=== PATIENT | female | born 2000 | race Caucasian/White ===

== ENCOUNTER 2018-02-07 23:54 | Emergency (ER) | payer MEDICAID, SELFPAY ==
[2018-02-07 23:56] VITALS: BP 137/81; PULSE 106; RESP 20; TEMP 36.2; O2SAT 98; BMI 36.6
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
[2018-02-08 00:12] VITALS: BP 125/80; PULSE 95; RESP 14; O2SAT 98
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
== END 2018-02-08 00:33 | disposition home or self-care (01) ==
PROVIDERS: Emergency Provider Emergency Medicine; Family Provider Family Medicine; PCP Family Medicine
DX: S40.022A Contusion of left upper arm, initial encounter (principal); S20.212A Contusion of left front wall of thorax, initial encounter; S39.012A Strain of muscle, fascia and tendon of lower back, initial encounter; V43.52XA Car driver injured in collision with other type car in traffic accident, initial encounter; W22.11XA Striking against or struck by driver side automobile airbag, initial encounter; Y93.89 Activity, other specified; Y92.410 Unspecified street and highway as the place of occurrence of the external cause; Z72.0 Tobacco use
CPT/HCPCS: 99282

== ENCOUNTER → 2018-02-11 11:42 | Outpatient (CLI) | payer MEDICAID, SELFPAY ==
[2018-02-07 23:56] VITALS: BMI 36.6
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
== END ==
PROVIDERS: Family Provider Family Medicine; PCP Family Medicine; Referring Provider Family Medicine; Visit Provider Family Medicine
DX: M54.2 Cervicalgia (principal); M54.5 Low back pain
CPT/HCPCS: 72050; 72100

== ENCOUNTER → 2018-03-31 10:14 | Outpatient (CLI) | payer OTHER, MEDICAID, SELFPAY ==
[2018-03-31 10:03] VITALS: BMI 36.6
[2018-03-31 10:42] LABS: Absolute Lymphocyte Count 3.49 X10^3/ul (0.83-4.51); Absolute Neutrophil Count 9.6 X10^3/uL (2.0-7.7); Basophil# 0.02 X10^3/uL; Basophil% 0.1 % (0-1); Eosinophil# 0.19 X10^3/uL; Eosinophils% 1.3 % (0-5); Hematocrit 39.1 % (37-47); Hemoglobin 13.1 g/dl (12.0-15.0); Lymphocyte # 3.49 X10^3/ul (4.0); Lymphocyte % 24.2 % (19-41); Mean Corp Hgb Conc 33.5 g/gl (32-36); Mean Corpuscular Hgb 30.3 pg (27.0-32.0); Mean Corpuscular Volume 90.3 fL (81-99); Mean Platelet Vol. 9.1 fl (6.2-12.0); Monocyte# 1.04 X10^3/uL; Monocyte% 7.2 % (0-10); Neutrophil # 9.64 X10^3/uL (2.7-7.7); Neutrophil % 66.8 % (47-70); Platelet Count 256 K/mm3 (150-450); RBC Distribution Width CV 12.5 % (11.6-14.6); RBC Distribution Width SD 41.2 fl (35.1-43.9); Red Blood Count 4.33 M/mm3 (4.2-5.4); White Blood Count 14.4 K/mm3 (4.4-11.0)
[2018-03-31 10:44] LABS: POSITIVE COUNT NO; POSITIVE DIFFERENTIAL NO; POSITIVE MORPHOLOGY NO
[2018-03-31 12:00] LABS: HIV - WCH Non-Reactive (Nonreactive); Rubella IgG 75.2 IU/mL
[2018-03-31 14:49] LABS: Chlamydia Trachomatis by PCR Negative (Negative); Neisserai gonorrhoeae by PCR Negative (Negative); Probe Check PASS; Sample Adequacy Control PASS; Specimen Processing Control PASS
[2018-04-01 08:34] LABS: HEPATITIS B SURFACE AG Negative (Negative)
[2018-04-04 03:30] LABS: Rapid Plasmin Reagin (RPR) NONREACTIVE (NONREACTIVE)
== END ==
PROVIDERS: Nurse Practitioner Women's Health; Family Provider Family Medicine; PCP Family Medicine; Referring Provider Obstetrics & Gynecology; Visit Provider Obstetrics & Gynecology
DX: Z34.90 Encounter for supervision of normal pregnancy, unspecified, unspecified trimester (principal)
CPT/HCPCS: 36415; 85025; 86592; 86703; 86762; 86850; 86900; 87077; 87086; 87088; 87186; 87340; 87491; 87591

== ENCOUNTER → 2018-04-21 12:22 | Outpatient (CLI) | payer OTHER, SELFPAY ==
[2018-03-31 10:03] VITALS: BMI 36.6
== END ==
PROVIDERS: Family Provider Family Medicine; PCP Family Medicine
DX: Z36.82 Encounter for antenatal screening for nuchal translucency (principal); Z36.0 Encounter for antenatal screening for chromosomal anomalies
CPT/HCPCS: 36415

== ENCOUNTER → 2018-05-26 09:54 | Outpatient (CLI) | payer MEDICAID, SELFPAY ==
[2018-05-26 09:18] VITALS: BMI 36.6
== END ==
PROVIDERS: Family Provider Family Medicine; PCP Family Medicine
DX: Z34.82 Encounter for supervision of other normal pregnancy, second trimester (principal)
CPT/HCPCS: 36415

== ENCOUNTER 2018-06-08 05:30 | Emergency (ER) | payer MEDICAID, SELFPAY ==
[2018-05-26 09:18] VITALS: BMI 36.6
[2018-06-08 05:32] VITALS: BP 133/70; PULSE 109; RESP 20; TEMP 37.2; O2SAT 96; BMI 37.5
--- NOTE | 2018-06-08 05:43 | ED.VISSUMM ---
- ER Visit Summary Date of Service: 06/08/18 Chief Complaint: Nausea, vomiting and diarrhea History of Present Illness: The patient is a 18 F currently 19 weeks . Ab0. Due October 31. Currently under the care of Dr. Kelsey Meeks. Patient states last night about 10 PM she started having nausea, vomiting diarrhea. No fever. No dysuria. No abdominal pain. No vaginal bleeding. Been able to hold down limited fluids. Physical Examination: Young female no acute distress. Vital signs are stable. She is afebrile. Temperature 99. HEENT exam dry mixed memories. Neck nontender no lymphadenopathy. Lungs clear to auscultation bilaterally. Heart regular rhythm rate about 110 no murmur. Abdomen soft. Gravid uterus. Nontender. Normal bowel sounds no peritoneal signs. Both the right upper right lower quadrants are unremarkable. No peritoneal signs. No McBurney's point tenderness. Extremities moves all 4. Calves nontender. No edema. Neurologically awake and alert with no focal motor deficits. Skin unremarkable. Back nontender. Test Results: None Emergency Department Course and Treatment: Patient treated with IV fluids and IV Zofran. P.o. fluid challenge. Repeat exam she is doing well and is been able to hold down fluids. Discharged to home with Zofran home pack. Treatment Plan: Plenty of fluids and rest. Increase diet slowly. Return if worse. Follow-up with your [employer]. Disposition: Discharge Impression: Acute viral gastroenteritis with nausea, vomiting diarrhea Second trimester This note was generated with [employer] dictation software. It may contain incorrect words, spelling, and punctuation that were not noted in review of the chart prior to signing ED Disposition - Plan for ED Patient: Referrals: Jabari Rubin MD [Primary Care Provider] -
--- NOTE | 2018-06-08 05:45 | ED.DEP ---
ED Disposition - Plan for ED Patient: Disposition: Home or Assisted Living Instructions: ED Gastroenteritis Viral Prescriptions: Ondansetron [Zofran Odt] 4 mg PO Q8H PRN PRN #10 tab PRN Reason: Nausea Referrals: Jabari Rubin MD [Primary Care Provider] - 1-2 Days if not improving Additional Instructions: Plenty of fluids and rest. Increase diet slowly as tolerated. Return if unable to keep fluids down or feeling worse. Zofran as needed for nausea.
[2018-06-08] MEDS: Ondansetron 4 MG/2 ML Vial IV (05:50)
[2018-06-08] MEDS: 0.9% Normal Saline 1,000 ML 999 ML IV (05:50)
[2018-06-08 06:57] VITALS: BP 120/80; PULSE 84; RESP 18; O2SAT 98
== END 2018-06-08 06:58 | disposition home or self-care (01) ==
PROVIDERS: Emergency Provider Emergency Medicine; Family Provider Family Medicine; PCP Family Medicine
DX: O99.612 Diseases of the digestive system complicating pregnancy, second trimester (principal); A08.4 Viral intestinal infection, unspecified; K21.9 Gastro-esophageal reflux disease without esophagitis; Z3A.19 19 weeks gestation of pregnancy
CPT/HCPCS: 96361; 96374; 99284; J7030; A4216; J2405

== ENCOUNTER → 2018-06-23 16:20 | Outpatient (CLI) | payer MEDICAID, SELFPAY ==
[2018-06-23 11:08] VITALS: BMI 37.5
== END ==
PROVIDERS: Family Provider Family Medicine; PCP Family Medicine; Referring Provider Obstetrics & Gynecology; Visit Provider Obstetrics & Gynecology
DX: O23.42 Unspecified infection of urinary tract in pregnancy, second trimester (principal); Z3A.00 Weeks of gestation of pregnancy not specified
CPT/HCPCS: 87077; 87086; 87088; 87186

== ENCOUNTER → 2018-07-15 18:07 | Outpatient (CLI) | payer MEDICAID, SELFPAY ==
[2018-07-15 16:49] VITALS: BMI 38.7
== END ==
PROVIDERS: Family Provider Family Medicine; PCP Family Medicine; Referring Provider Obstetrics & Gynecology; Visit Provider Obstetrics & Gynecology
DX: O23.40 Unspecified infection of urinary tract in pregnancy, unspecified trimester (principal); Z3A.00 Weeks of gestation of pregnancy not specified
CPT/HCPCS: 87086; 87088

== ENCOUNTER → 2018-07-30 10:29 | Outpatient (CLI) | payer MEDICAID, SELFPAY ==
[2018-07-30 10:24] VITALS: BMI 37.5
[2018-07-30 11:34] LABS: Absolute Lymphocyte Count 3.95 X10^3/ul (0.83-4.51); Absolute Neutrophil Count 15.7 X10^3/uL (2.0-7.7); Basophil# 0.03 X10^3/uL; Basophil% 0.1 % (0-1); Differential Indicated SCAN CRITERIA MET; Eosinophil# 0.28 X10^3/uL; Eosinophils% 1.3 % (0-5); Hematocrit 34.8 % (37-47); Hemoglobin 11.9 g/dl (12.0-15.0); Lymphocyte # 3.95 X10^3/ul (4.0); Lymphocyte % 18.8 % (19-41); Mean Corp Hgb Conc 34.2 g/gl (32-36); Mean Corpuscular Hgb 31.2 pg (27.0-32.0); Mean Corpuscular Volume 91.3 fL (81-99); Mean Platelet Vol. 9.4 fl (6.2-12.0); Monocyte% 4.3 % (0-10); Neutrophil # 15.66 X10^3/uL (2.7-7.7); Neutrophil % 74.5 % (47-70); POSITIVE COUNT NO; POSITIVE DIFFERENTIAL NO; POSITIVE MORPHOLOGY YES; Platelet Count 288 K/mm3 (150-450); RBC Distribution Width CV 12.8 % (11.6-14.6); RBC Distribution Width SD 42.4 fl (35.1-43.9); Red Blood Count 3.81 M/mm3 (4.2-5.4)
[2018-07-30 11:35] LABS: Glucose Challenge Gest 1H 50g 148 mg/dL (70-140)
== END ==
PROVIDERS: Family Provider Family Medicine; PCP Family Medicine; Visit Provider Obstetrics & Gynecology
DX: Z34.80 Encounter for supervision of other normal pregnancy, unspecified trimester (principal)
CPT/HCPCS: 36415; 82950; 85025

== ENCOUNTER 2018-07-31 21:46 | Outpatient (CLI) | payer MEDICAID, SELFPAY ==
[2018-07-30 10:24] VITALS: BMI 37.5
--- NOTE | 2018-08-02 09:59 | OB.TRI.PN ---
Progress Notes Date of Service: 07/31/18 Progress Note: Patient presents for chest pain and acute shortness of breath heart tones 140s patient sent to ER for evaluation. Diagnosed with pneumonia please see ED dictation for additional information
== END 2018-07-31 22:20 | disposition home or self-care (01) ==
LOC: WPOUT 22:19 → WP 22:20
PROVIDERS: Family Provider Family Medicine; PCP Family Medicine; Referring Provider Obstetrics & Gynecology; Visit Provider Obstetrics & Gynecology
DX: O99.512 Diseases of the respiratory system complicating pregnancy, second trimester (principal); J18.9 Pneumonia, unspecified organism; Z3A.26 26 weeks gestation of pregnancy
CPT/HCPCS: 59050; 99218; G0378

== ENCOUNTER 2018-07-31 22:23 | Emergency (ER) | payer MEDICAID, SELFPAY ==
[2018-07-30 10:24] VITALS: BMI 37.5
[2018-07-31 22:24] VITALS: BP 120/77; PULSE 78; RESP 16; TEMP 36.2; O2SAT 98; BMI 38.9
[2018-07-31 22:45] VITALS: BP 125/70; PULSE 70; RESP 14; O2SAT 98
--- NOTE | 2018-07-31 23:01 | EKG12_ITS ---
Test Reason : CP Blood Pressure : / mmHG Vent. Rate : 086 BPM Atrial Rate : 086 BPM P-R Int : 164 ms QRS Dur : 086 ms QT Int : 384 ms P-R-T Axes : 049 012 028 degrees QTc Int : 459 ms Normal sinus rhythm Possible Left atrial enlargement Borderline ECG Confirmed by DEWAYNE VALENCIA ([id number]), video editor CAROLINA ESPINOZA ([id number]) on 08/04/2018 2:04:05 PM Referred By: Confirmed By:DEWAYNE VALENCIA
--- NOTE | 2018-07-31 23:01 | RAD_ITS ---
STUDY: X-RAY CHEST REASON FOR EXAM: Female, 18 years old. Shortness of breath and chest pain. TECHNIQUE: 2 views COMPARISON: None. FINDINGS: The lungs are clear and expanded. There is no demonstrated pleural abnormality. Normal size heart. Normal mediastinum and dior. Normal visualized pulmonary arteries. Normal visualized aortic arch and descending thoracic aorta. Dextroscoliosis of the thoracic spine. Normal visualized ribs, clavicles, and shoulders. There is no demonstrated abnormality of the visualized soft tissue structures of the upper abdomen. RAD/Chest PA and Lateral IMPRESSION: No acute cardiopulmonary findings. Negative for consolidation, focal atelectasis or cardiomegaly. Dextroscoliosis of the thoracic spine. Electronically Signed: Sonia Johnson MD at 23:32 EDT , Service support ,
--- NOTE | 2018-07-31 23:02 | ED.VIS.GEN ---
History of Present Illness Chief Complaint: Chest Pain Informant: Patient Narrative: Patient presents with 3 hours of inspiratory chest pain diffuse across her chest. She states that she does not have any pain unless she takes a deep breath. She feels it across her chest and into her bilateral ribs. She is never had this before. No home treatment. She does not have any shortness of breath at rest but only if she takes a inspiratory breath. Patient denies any cough or congestion. She denies any pulmonary embolism risk factors. She is at 26 weeks. Severity per patient is mild. She is had no problems with her . She went up to OB triage and was evaluated with no problems with her prior to coming down. She denies any cardiac or dissection risk factors. Past Medical History - Allergies and Home Meds Allergies/Adverse Reactions: Allergies Penicillins Allergy (Verified 07/31/18 22:29) Hives Primary Care Physician: Jabari Rubin MD [Primary Care Provider] - Prior records reviewed: Yes Past Medical History: - - Naldo tract infection Surgical History: no surgical history Lives: Spouse/ Significant Other Smoking Status: Never smoker Alcohol: None Drugs: None Review of Systems General: Denies: Chills, Fever, Sweats Eyes: Denies: Visual changes - bilaterally, Diplopia ENT: Denies: Rhinorrhea, Sore throat Cardiovascular: Reports: Chest pain. Denies: Palpitations Respiratory: Denies: Dyspnea, Cough, Dyspnea on exertion Gastrointestinal: Denies: Abdominal pain, Nausea, Vomiting, Diarrhea, Melena, Hematochezia Genitourinary: Denies: Dysuria, Hematuria, Frequency Musculoskeletal: Denies: Back pain, Extremity Pain Skin: Denies: Rash, Wounds Neurological: Denies: Headache, Weakness, Numbness Physical Exam Vital Signs/Narrative: Vital Signs Temp Pulse Resp BP Pulse Ox 07/31/18 22:45 70 14 125/70 H 98 07/31/18 22:24 97.1 F L 78 16 120/77 98 General: Well nourished, Well developed, No Acute Distress Head: Normocephalic, Atraumatic Eyes: Perrl, EOMI ENT: Moist mucous membranes, No rhinorrhea Neck: Supple, Nontender Cardiovascular: Regular rate, Regular rhythm, No murmurs Respiratory: No distress, CTA bilaterally, Chest nontender Abdomen: Soft, Nontender, Nondistended, Normal bowel sounds Back: Nontender, Normal Inspection Extremities: Nontender, No edema Skin: Normal color, No rash Neurological: Alert, Oriented x3, Cranial nerves II-XII grossly intact, Normal Strength, Normal Sensation Psychological: Normal affect, Normal Mood Diagnostic/Tx/Re-eval - Medical Decision Making EKG shows sinus rhythm at a rate of 86. No ischemic findings. T wave inversion V2 only. Lab work and chest x-ray obtained. Work shows a significant white blood cell count greater than 25,000. Positive left shift. Chest x-ray shows nothing acute. D-dimer positive. CTA of the chest shows pneumonia and incidental dilated pulmonary artery. I do not think this is related to any of her symptoms. She is given azithromycin. I discussed the case with Dr. Zion Wolf. At this time she will follow-up with an outpatient echocardiogram. The patient is not having any shortness of breath. She is resting comfortably on reevaluation. Given azithromycin. She is on Bactrim for a dental infection started this. She will continue this and follow-up as an outpatient. ED Disposition - Plan for ED Patient: Disposition: Home or Assisted Living Diagnosis: Pneumonia Instructions: ED Pneumonia Adult Prescriptions: Azithromycin 250 mg PO DAILY #4 tab Referrals: Kelsey Meeks MD [STAFF PHYSICIAN] -
[2018-07-31 23:16] LABS: Absolute Lymphocyte Count 4.75 X10^3/ul (0.83-4.51); Absolute Neutrophil Count 18.1 X10^3/uL (2.0-7.7); Basophil# 0.05 X10^3/uL; Basophil% 0.2 % (0-1); Differential Indicated SCAN CRITERIA MET; Eosinophil# 0.32 X10^3/uL; Eosinophils% 1.2 % (0-5); Hematocrit 34.7 % (37-47); Hemoglobin 11.9 g/dl (12.0-15.0); Lymphocyte # 4.75 X10^3/ul (4.0); Lymphocyte % 18.5 % (19-41); Mean Corp Hgb Conc 34.3 g/gl (32-36); Mean Corpuscular Hgb 31.2 pg (27.0-32.0); Mean Corpuscular Volume 91.1 fL (81-99); Mean Platelet Vol. 9.6 fl (6.2-12.0); Monocyte% 8.2 % (0-10); Neutrophil # 18.06 X10^3/uL (2.7-7.7); Neutrophil % 70.3 % (47-70); POSITIVE COUNT NO; POSITIVE DIFFERENTIAL YES; POSITIVE MORPHOLOGY YES; Platelet Count 288 K/mm3 (150-450); RBC Distribution Width CV 12.6 % (11.6-14.6); RBC Distribution Width SD 41.6 fl (35.1-43.9); Red Blood Count 3.81 M/mm3 (4.2-5.4); White Blood Count 25.7 K/mm3 (4.4-11.0)
[2018-07-31 23:25] LABS: D-Dimer Quantitative (DVT/PE) 0.63 FEU/ug/m (0.27-0.49)
[2018-07-31] MEDS: Acetaminophen 500 MG Tablet 1000 MG PO (23:25)
[2018-07-31 23:27] VITALS: BP 128/80; PULSE 81; RESP 20; O2SAT 97; O2SAT 98
--- NOTE | 2018-07-31 23:27 | ED.RN ---
CRITICAL DDIMER 0.[address] HUERTA.
[2018-07-31 23:32] LABS: Anion Gap 8 (5-15); BUN 8 mg/dL (7-18); BUN/Creat Ratio 16.5 RATIO (10-20); Calcium,Total 9.1 mg/dL (8.5-10.1); Chloride 106 mmol/L (98-107); Creatinine, Serum 0.48 mg/dL (0.55-1.02); EST Glomerular Filtration Rate 173 mL/min (>60); Est Glom Filt Rate - Afr Amer 209 mL/min (>60); Estimated Creatinine Clearance 147.86 ml/min; Glucose 84 mg/dL (74-106); Potassium 3.5 mmol/L (3.5-5.1); Sodium Level 137 mmol/L (136-145)
--- NOTE | 2018-07-31 23:36 | CT_ITS ---
STUDY: CTA CHEST REASON FOR EXAM: Female, 18 years old. Chest pain. Elevated d-dimer and WBC RADIATION DOSAGE (If Supplied By Facility): CTDIvol = ( 7.64 ) mGy, DLP = ( 436.42 ) mGycm TECHNIQUE: The examination was performed with the intravenous administration of 100ML IV Isovue 370. Post-processing of the angiographic images was performed, with multiplanar reformation and 3D reconstruction. Individualized dose optimization techniques were used for this CT. COMPARISON: None. FINDINGS: TRACHEA, THYROID, ESOPHAGUS: No tracheomalacia,stricture or wall thickening. Thyroid and esophagus are normal CARDIOVASCULAR SYSTEM: The so-called egg and banana sign of pulmonary hypertension is evident. The pulmonary trunk measures 3.1 cm. The thoracic aorta is normal with no focal aneurysm or dissection. There are no abnormal calcifications/metallic densities at the aortic root. The pulmonary trunk and the left and right pulmonary arteries and their lobar and segmental branches all fail to show any abnormal and persistent filling defects to indicate the presence of pulmonary embolism. The heart is normal in size with no demonstration of any right ventricular strain. No developmental vascular anomalies are seen. LIA AND LYMPH NODES: No hilar masses and no mediastinal, hilar, axillary or supraclavicular adenopathy LUNGS, LOW-ATTENUATION: No traction bronchiectasis, honeycombing,emphysema, lung cysts or cavitations LUNGS, HIGH ATTENUATION: A patch of 5.7 x 4.6 cm area of groundglass opacities in the right lower lobe. Early pneumonia is suspected. LUNGS, MOSAIC/CRAZY PAVING: Not evident PLEURA AND CHEST WALL: No plural effusions, pneumothoraces,rib fractures or any osteolytic/osteoblastic changes . The soft tissue chest wall including the breasts are normal UPPER ABDOMEN: Unremarkable . CT/CTA Chest W/WO Contrast IMPRESSION: Normal CTA chest examination, without a demonstrated pulmonary embolism or arterial dissection. The so-called banana and egg sign of pulmonary hypertension is evident. The pulmonary trunk is 3.1 cm in diameter. A 5.7 x 4.6 cm patch of groundglass opacity in the right lower lobe. Early pneumonia is suspected Electronically Signed: Bobo So MD at 1:24 EDT Tel , Service support ,
[2018-08-01] MEDS: Azithromycin 250 MG Tablet 500 MG PO (01:55)
[2018-08-01] MEDS: 0.9% Normal Saline 1,000 ML 1000 ML IV (01:56)
[2018-08-04 14:39] LABS: Pathologist Review Reviewed
== END 2018-08-01 01:57 | disposition home or self-care (01) ==
PROVIDERS: Emergency Provider Emergency Medicine; Family Provider Family Medicine; PCP Family Medicine
DX: O99.512 Diseases of the respiratory system complicating pregnancy, second trimester (principal); J18.9 Pneumonia, unspecified organism; Z3A.26 26 weeks gestation of pregnancy
CPT/HCPCS: 36415; 59050; 71046; 71275; 80048; 82951; 82952; 84484; 85025; 85379; 93005; 99218; 99283; Q9967; A4216; G0378

== ENCOUNTER → 2018-08-01 06:59 | Outpatient (CLI) | payer MEDICAID, SELFPAY ==
[2018-07-30 10:24] VITALS: BMI 37.5
[2018-07-31 22:24] VITALS: BMI 38.9
[2018-08-01 07:55] LABS: Glucose GTT-Gestation. Fasting 92 mg/dL (<105)
[2018-08-01 08:22] VITALS: BMI 38.9
[2018-08-01 08:56] LABS: Glucose GTT-Gestational 1 Hr 190 mg/dL (<190)
[2018-08-01 10:00] LABS: Glucose GTT-Gestational 2 Hr 136 mg/dL (<165)
[2018-08-01 12:30] LABS: Glucose GTT-Gestational 3 Hr 49 L (<145)
== END ==
PROVIDERS: Family Provider Family Medicine; PCP Family Medicine; Referring Provider Obstetrics & Gynecology; Visit Provider Obstetrics & Gynecology
DX: O99.810 Abnormal glucose complicating pregnancy (principal); O99.512 Diseases of the respiratory system complicating pregnancy, second trimester; J18.9 Pneumonia, unspecified organism; Z3A.26 26 weeks gestation of pregnancy
CPT/HCPCS: 36415; 82951; 82952

== ENCOUNTER → 2018-09-02 14:39 | Outpatient (CLI) | payer MEDICAID, SELFPAY ==
[2018-09-02 10:05] VITALS: BMI 38.9
== END ==
PROVIDERS: Family Provider Family Medicine; PCP Family Medicine; Referring Provider Obstetrics & Gynecology; Visit Provider Obstetrics & Gynecology
DX: O23.40 Unspecified infection of urinary tract in pregnancy, unspecified trimester (principal); Z3A.00 Weeks of gestation of pregnancy not specified
CPT/HCPCS: 87086; 87088

== ENCOUNTER → 2018-10-03 16:33 | Outpatient (CLI) | payer MEDICAID, SELFPAY ==
[2018-10-03 10:01] VITALS: BMI 38.9
== END ==
PROVIDERS: Family Provider Family Medicine; PCP Family Medicine; Referring Provider Obstetrics & Gynecology; Visit Provider Obstetrics & Gynecology
DX: Z34.02 Encounter for supervision of normal first pregnancy, second trimester (principal)
CPT/HCPCS: 87081

== ENCOUNTER 2018-11-03 09:45 | Inpatient (IN) | payer MEDICAID, SELFPAY ==
[2018-10-27 10:28] VITALS: BMI 38.9
[2018-11-03 09:20] VITALS: BMI 39.4
[2018-11-03 09:47] LABS: ROM Internal Control Test YES-OK TO RESULT pt. (Internal QC); ROM Patient Test POSITIVE (Negative)
--- NOTE | 2018-11-03 10:26 | PCM.HP.OB ---
- Problem List (1) Active labor at term Status: Acute (2) General counseling and advice for contraceptive management Status: Acute Comment: IUD pp (3) Status: Acute Qualifiers: Comment: Seq screen neg. carrier screening declined. anatomy scan nl (4) Supervision of normal first Status: Acute Qualifiers: Comment: PRR NANCY 10/31/18 boy Nathaniel Spouse- Jordan History Date of Admission: 11/03/18 Final NANCY: 10/31/18 Final NANCY Source: LMP Gestational age: 40 Weeks and 3 Days History of this : This is a 18 year-old, at 40 weeks gestational age presents IAL 3 cm SROM clear fluid. she has been having regular ctx.. Medical History: Medical History (Last Reviewed 10/20/18 @ 10:00 by Caren Zavala) Scoliosis M41.9 Allergies Penicillins Allergy (Verified 10/20/18 10:00) Hives Home Medications: Home Medications Pnv No.95/Ferrous Fum/Folic AC [ Caplet] 11 tab PO DAILY 06/08/18 Smoking Status: Never smoker Alcohol: None Number of Fetus(es): 1 Heart Tracing: fht 130 moderate variability reactive no decelerations category I tracing [place]: regular History Past Pregnancies: Past Pregnancies Delivery Date Name GA/Weeks Outcome Route Weight Gender Labor Length Anesthesia Delivery Location Provider FOB Labs: Mom's Labs & Results 11/03/18 09:13 Vag Amniotic Fld Detect POSITIVE H Social History Smoking Status Never smoker Mom's Problem List Problem Status Onset Code Active labor at term Acute Mom's Labs & Results 11/03/18 11/03/18 11/03/18 09:13 10:50 10:50 WBC 18.3 H RBC 3.89 L Hgb 12.4 Hct 36.3 L MCV 93.3 MCH 31.9 MCHC 34.2 RDW Std Deviation 44.1 H RDW Coeff of Nitin 12.9 Plt Count 245 MPV 9.8 Immature Gran % (Auto) 1.400 H Neut % (Auto) 73.7 H Lymph % (Auto) 17.1 L [place] % (Auto) 6.7 Eos % (Auto) 0.9 Baso % (Auto) 0.2 Absolute Neuts (auto) 13.5 H Absolute Lymphs (auto) 3.12 Nucleated RBC % 0 Sodium Potassium Chloride Carbon Dioxide Anion Gap BUN Creatinine Estim Creat Clear Calc Est GFR (MDRD) Af Amer Est GFR (MDRD) Non-Af BUN/Creatinine Ratio Glucose Calcium Total Bilirubin AST ALT Alkaline Phosphatase Total Protein Albumin Globulin Albumin/Globulin Ratio Vag Amniotic Fld Detect POSITIVE H Blood Type A POSITIVE Antibody Screen NEGATIVE 11/03/18 12:12 WBC RBC Hgb Hct MCV MCH MCHC RDW Std Deviation RDW Coeff of Nitin Plt Count MPV Immature Gran % (Auto) Neut % (Auto) Lymph % (Auto) [place] % (Auto) Eos % (Auto) Baso % (Auto) Absolute Neuts (auto) Absolute Lymphs (auto) Nucleated RBC % Sodium 137 Potassium 3.8 Chloride 107 Carbon Dioxide 23.0 Anion Gap 7 BUN 6 L Creatinine 0.43 L Estim Creat Clear Calc 165.06 Est GFR (MDRD) Af Amer 242 Est GFR (MDRD) Non-Af 200 BUN/Creatinine Ratio 14.1 Glucose 83 Calcium 9.0 Total Bilirubin 0.30 AST 23 ALT 27 Alkaline Phosphatase 105 Total Protein 6.4 Albumin 2.6 L Globulin 3.8 Albumin/Globulin Ratio 0.7 L Vag Amniotic Fld Detect Blood Type Antibody Screen Course Did the patient receive Yes care? Labs Blood Type: A RH: POSITIVE RPR/VDRL/Syphilis Nonreactive Rubella status Immune HbSAg Negative Date Done: 03/31/18 Chlamydia Negative Gonorrhea Negative HIV/AIDS Non-Reactive Group B Strep: Negative Current Obstetrical History Gestational Diabetes No Incompetent Cervix No Infertility No IUGR No Macrosomia No Hypertension/Pre-eclampsia No Placenta Previa/Abruption No PTL/PROM No Uterine anomaly No Oligohydramnios No Polyhydramnios No Multiple gestation No Past Medical History Asthma Yes Diabetes No Hypertension No Heart disease No Mitral valve prolapse No Neurologic/Seizure disorder/ No Migraines Kidney disease No Liver disease No Varicosities No Clotting disorders/Hx of DVT No Thyroid Dysfunction No Other medical diseases Yes: scoliosis Psychiatric disorders No Major trauma No Abnormal PAP smear No Sleep apnea No Mammogram in the last 2 years No Social History Marital Status: Alleged father Jordan Hx Smoking Yes Smoking Status Current every day smoker Expected Infant Delivery Method: Spontaneous Vaginal Review of Systems Constitutional: Denies: Fever, Malaise Eyes: Denies: Blurred vision, Vision Change HEENT: Denies: Head Aches, Visual Changes Cardiovascular: Denies: Chest Pain, Palpitations Respiratory: Denies: Cough, Shortness of Breath, Wheezing Gastrointestinal: Denies: Abdominal Pain, Diarrhea, Nausea, Vomiting Genitourinary: Denies: Dysuria, Hematuria Musculoskeletal: Denies: Joint Pain, Muscle pain Skin: Denies: Lesions, Rash Neurological: Denies: Blurred vision, Focal weakness, Headaches Psychiatric: Denies: Anxiety, Depression Endocrine: Denies: Heat/ Cold Intolerance Hematologic/ Lymphatic: Denies: Easy Bruising, Easy Bleeding Physical Exam General: Alert, Cooperative, No apparent distress HEENT: Atraumatic, Normocephalic. Negative for: Thyromegaly, Lymphadenopathy Cardiovascular: Regular rate Lungs: Normal air movement Abdomen: Soft, Non Tender, Gravid Neurological: Deep Tendon Reflexes 2+/4 and Symmetrical, Neuro grossly intact. Negative for: Clonus [employer]AFF [employer] OFFICER: Normal external genitalia. Negative for: Vulvar lesions Estimated gestational size: Appropriate for gestational size Presentation: Cephalic Assessment/Plan All Active Problems (Last Reviewed 10/20/18 @ 10:00 by Caren Zavala) Active labor at term (Acute) General counseling and advice for contraceptive management (Acute) Pneumonia affecting in second trimester (Acute) UTI in (Acute) (Acute) Supervision of normal first (Acute) This is a 18 year-old, @ 40w3d presents IAL SROM clear fluid Patient presents IAL, plan expectant management for , pitocin if needed Pain management: plans epidural. GBS negative. Management of any complications: elevated bps- mild range, normal labs I have reviewed the [facility] and made any clinically relevant updates.
[2018-11-03] MEDS: Lactated Ringers 1,000 ML 50 ML IV ×2 (10:50→17:07)
[2018-11-03 11:06] LABS: Absolute Lymphocyte Count 3.12 X10^3/uL (0.83-4.51); Absolute Neutrophil Count 13.5 X10^3/uL (2.0-7.7); Basophil# 0.04 X10^3/uL; Basophil% 0.2 % (0-1); Eosinophil# 0.16 X10^3/uL; Eosinophils% 0.9 % (0-5); Hematocrit 36.3 % (37-47); Hemoglobin 12.4 g/dL (12.0-15.0); Lymphocyte # 3.12 X10^3/ul (4.0); Lymphocyte % 17.1 % (19-41); Mean Corp Hgb Conc 34.2 g/dL (32-36); Mean Corpuscular Hgb 31.9 pg (27.0-32.0); Mean Corpuscular Volume 93.3 fL (81-99); Mean Platelet Vol. 9.8 fl (6.2-12.0); Monocyte# 1.23 X10^3/uL; Monocyte% 6.7 % (0-10); NRBC Flagged by Analyzer 0 % (0-5); Neutrophil # 13.48 X10^3/uL (2.7-7.7); Neutrophil % 73.7 % (47-70); Platelet Count 245 K/mm3 (150-450); RBC Distribution Width CV 12.9 % (11.6-14.6); RBC Distribution Width SD 44.1 fl (35.1-43.9); Red Blood Count 3.89 M/mm3 (4.2-5.4); White Blood Count 18.3 K/mm3 (4.4-11.0)
[2018-11-03 12:46] LABS: ALB/GLOB Ratio 0.7 RATIO (0.9-2.4); AST(SGOT) 23 U/L (15-37); Alanine Aminotransfer ALT/SGPT 27 U/L (13-56); Albumin, Serum 2.6 g/dL (3.2-5.0); Alkaline Phosphatase 105 U/L (45-117); Anion Gap 7 (5-15); BUN 6 mg/dL (7-18); BUN/Creat Ratio 14.1 RATIO (10-20); Chloride 107 mmol/L (98-107); Creatinine, Serum 0.43 mg/dL (0.55-1.02); EST Glomerular Filtration Rate 200 mL/min (>60); Est Glom Filt Rate - Afr Amer 242 mL/min (>60); Estimated Creatinine Clearance 165.06 ml/min; Globulin 3.8 g/dL (2.2-4.2); Glucose 83 mg/dL (74-106); Potassium 3.8 mmol/L (3.5-5.1); Protein, Total 6.4 g/dL (6.4-8.2); Sodium Level 137 mmol/L (136-145)
[2018-11-03] MEDS: Oxytocin 30 units/NS 500 ml 30 UNITS/500 ML IV.SOLN IV (13:17)
[2018-11-03] MEDS: Oxytocin 30 units/NS 500 ml 30 UNITS/500 ML IV.SOLN 334 UNITS IV (19:59)
--- NOTE | 2018-11-03 20:23 | PCM.OPRPT ---
Problem List (1) Active labor at term Status: Acute (2) General counseling and advice for contraceptive management Status: Acute Comment: IUD pp (3) Status: Acute Qualifiers: Comment: Seq screen neg. carrier screening declined. anatomy scan nl (4) Supervision of normal first Status: Acute Qualifiers: Comment: PRR NANCY 10/31/18 boy Nathaniel Spouse- Jordan Vaginal Delivery Maternal Presentation: Active Labor ial 40 weeks Method of Induction: Pitocin Amniotic Membrane Rupture Type: Spontaneous at home Amniotic Fluid Description: Clear Final NANCY: 10/31/18 Gestational age: 40 Weeks and 3 Days Date of Procedure: 11/03/18 Pre-Operative Diagnosis: ial Post-Operative Diagnosis: same Surgery/ Procedure Performed: Spontaneous Vaginal Delivery Type of Anesthesia: Local with 1% lidocaine, Pudendal block with 1% lidocaine Description of Procedure: Patient requested additional anesthesia with a pudendal block placed after prepping the vagina with Betadine and finding the bilateral ischial spines and going 1 cm medial and posterior into the sacrospinous ligament bilaterally injecting 10 cc of lidocaine in both sides for a total of 20 cc. Patient began pushing again and delivered the head in the LAZARO presentation. The head was delivered atraumatically . The anterior and posterior shoulders delivered without complication followed by the rest of the infant and the infant was placed on the maternal abdomen. Delayed cord clamping was employed for approximately 60 seconds. Cord was clamped and cut and gentle traction was applied to the cord and the placenta delivered spontaneously immediately following it was noted to be intact with three-vessel cord. The perineum and vagina were inspected and noted to have a first-degree perineal laceration that was repaired in the usual fashion with 3-0 Vicryl repeat after injection with 1% lidocaine. EBL was 300 cc. Patient and infant tolerated delivery well. Presentation: LAZARO Placental Delivery Description: Spontaneous Placenta Disposition: [facility] Cord Vessel Description: 3 Vessels Cord Entanglement: None Estimated Blood Loss: 300 A gender: Male Episiotomy Description: None Laceration: Perineal Extension/lac, 1st degree Medications given after delivery: IV Pitocin Complications: None
[2018-11-03] MEDS: Oxytocin 30 units/NS 500 ml 30 UNITS/500 ML IV.SOLN 167 UNITS IV (20:29)
[2018-11-03] MEDS: 0.9% Saline Lock 10 ML Syringe IV (21:32)
[2018-11-03 22:06] VITALS: BP 145/79; PULSE 100; RESP 16; TEMP 36.5; O2SAT 98
--- NOTE | 2018-11-03 22:06 | NURSING ---
sandeep RN told RN that there was light mec noted during her shift. this RN did not assess anything other than clear amniotic fluid.
[2018-11-03 23:59] VITALS: BP 148/85; PULSE 87; RESP 16; TEMP 36.3
[2018-11-04] VITALS (41 sets, daily range): BP systolic 106–192; BP diastolic 53–100; PULSE 80–98; RESP 14–27; TEMP 36.1–36.6; O2SAT 95–99
[2018-11-04] MEDS: Naproxen 250 MG Tablet 500 MG PO (05:32)
[2018-11-04 05:47] LABS: Absolute Lymphocyte Count 3.43 X10^3/uL (0.83-4.51); Absolute Neutrophil Count 17.8 X10^3/uL (2.0-7.7); Basophil# 0.04 X10^3/uL; Basophil% 0.2 % (0-1); Eosinophil# 0.05 X10^3/uL; Eosinophils% 0.2 % (0-5); Hemoglobin 10.6 g/dL (12.0-15.0); Lymphocyte # 3.43 X10^3/ul (4.0); Lymphocyte % 14.7 % (19-41); Mean Corp Hgb Conc 34.2 g/dL (32-36); Mean Corpuscular Hgb 31.6 pg (27.0-32.0); Mean Corpuscular Volume 92.5 fL (81-99); Monocyte# 1.78 X10^3/uL; Monocyte% 7.6 % (0-10); NRBC Flagged by Analyzer 0 % (0-5); Neutrophil # 17.77 X10^3/uL (2.7-7.7); Neutrophil % 76.1 % (47-70); POSITIVE DIFFERENTIAL YES; Platelet Count 212 K/mm3 (150-450); RBC Distribution Width CV 13.1 % (11.6-14.6); Red Blood Count 3.35 M/mm3 (4.2-5.4); White Blood Count 23.3 K/mm3 (4.4-11.0)
[2018-11-04 06:01] LABS: Differential Indicated SCAN CRITERIA MET
[2018-11-04 06:12] LABS: ALB/GLOB Ratio 0.6 RATIO (0.9-2.4); AST(SGOT) 25 U/L (15-37); Alanine Aminotransfer ALT/SGPT 24 U/L (13-56); Albumin, Serum 2.2 g/dL (3.2-5.0); Alkaline Phosphatase 89 U/L (45-117); Anion Gap 11 (5-15); BUN 8 mg/dL (7-18); BUN/Creat Ratio 15.1 RATIO (10-20); Calcium,Total 8.6 mg/dL (8.5-10.1); Chloride 107 mmol/L (98-107); Creatinine, Serum 0.53 mg/dL (0.55-1.02); EST Glomerular Filtration Rate 155 mL/min (>60); Est Glom Filt Rate - Afr Amer 188 mL/min (>60); Estimated Creatinine Clearance 133.92 ml/min; Globulin 3.5 g/dL (2.2-4.2); Glucose 100 mg/dL (74-106); Potassium 3.6 mmol/L (3.5-5.1); Protein, Total 5.7 g/dL (6.4-8.2); Sodium Level 140 mmol/L (136-145)
[2018-11-04] MEDS: Magnesium Sulfate 20 GM/500 ML BAG IV ×2 (06:13→17:30)
--- NOTE | 2018-11-04 06:23 | NURSING ---
Addendum entered by Cuca Correa 11/04/18 06:49: BP 0432 162/80, 0447 192/100, 0455 192/83, 0503 168/[address] [facility]ks [facility] 0512[facility] this RN reviewed HTN protocal and physician verbal request for 6 gram magnesium bolus with maintenance of 2 gram and IV labetolol, pt verbalized hx of childhood asthma. knowing beta alix side effects, dr meeks was contacted by this RN to confirm this medication before administration. she states at 0523 to administer hydralazine 5 mg to begin the first line treatment. will follow HTN protocal and continue to monitor. Original Note: [address] Meeks to give her a series of BP obtained on pt that were elevated. informed SM of pt negative assessment (no clonus present, denies TRAN or blurred vision, pain 4/10 cramping in abdomen with breast feeding, reflexes +1). Dr meeks states to begin HTN protocal with labetolol.
--- NOTE | 2018-11-04 06:35 | NURSING ---
called dr christiansen to update her on most receent CMP and CBC results. dr christiansen not concerned with increase in WBC from 18.3 to 23.3. informed her of most recent BP WNL and pt still asymptomatic. confirmed fluid restriction 150 cc total per hour with oral intake and magnesium. in addition, dr christiansen informed this RN to begin maintenance dose of medication 10 mg PO now, then 10 mg TID scheduled. follow HTN maintenance medication protocal. will continue to monitor and update physician as needed.
--- NOTE | 2018-11-04 07:00 | NURSING ---
this RN changed BP cuff size to assess the difference in BP measurement to report to physician. charge auditor at bedside.
--- NOTE | 2018-11-04 07:32 | NURSING ---
[id number] pharmacy contacted to request PO dose of hydralazine needed for pt administration. passed on in bedside report 0700 to give medication when it is tubed to the unit. this RN will bring to pt room if it arrives while charting at nurses station.
[2018-11-04] MEDS: hydrALAZINE 10 MG Tablet PO ×3 (07:55→22:11)
--- NOTE | 2018-11-04 08:55 | NURSING ---
Indwelling catheter in place. WNL.
--- NOTE | 2018-11-04 08:55 | NURSING ---
Dr. Meeks called. Verbal order obtained to remove calix and IV maintenance fluids can be discontinued so that patient can have more oral intake. Patient will not be on bedrest.
--- NOTE | 2018-11-04 09:30 | NURSING ---
Addendum entered by Adele Aguilar RN 11/04/18 19:35: Patient ambulated to bathroom for bright care. Tucks pads placed in pad. Patient sitting in chair with call light in reach. Original Note: [id number]
[2018-11-04] MEDS: Dibucaine 30 GM Tube 1 APPLIC TOPICAL (09:58)
[2018-11-04 15:42] LABS: Pathologist Review Reviewed
[2018-11-05] VITALS (7 sets, daily range): BP systolic 109–136; BP diastolic 56–75; PULSE 74–88; RESP 15–18; TEMP 36.6; O2SAT 97–98
[2018-11-05] MEDS: 0.9% Saline Lock 10 ML Syringe IV (04:11)
[2018-11-05] MEDS: hydrALAZINE 10 MG Tablet PO (06:13)
[2018-11-05] MEDS: Naproxen 250 MG Tablet 500 MG PO (07:39)
--- NOTE | 2018-11-05 07:45 | PCM.PN.OB ---
Patient Problems: Active and Suspected Problems (Last Reviewed 10/20/18 @ 10:00 by Caren Zavala) Active labor at term (Acute) Subjective: doing well no complaints pain controlled no CP SOB N V ambulating well tolerating po lochia moderate, going well. States feels much better off Mag. No headaches. BP WNL - Physical Exam General: Alert, Oriented x3 Abdomen: Soft, Non Tender, - - FF below U Vital Signs Temp Pulse Resp BP Pulse Ox 97.8 F 74 15 122/73 H 98 11/05/18 02:30 11/05/18 06:13 11/05/18 05:15 11/05/18 05:15 11/05/18 05:15 Oxygen Delivery Method Room Air Weight: 215 lb 8 oz Body Mass Index (BMI) 39.4 Intake and Output for Last 24 Hours 11/03/18 11/04/18 11/05/18 23:59 23:59 23:59 Intake Total 2899 / 2899 724 / 724 Output Total 200 / 200 2975 / 2975 1650 / 1650 Balance -200 / -200 -76 / -76 -926 / -926 Laboratory Tests Past 24 Hrs 11/04/18 05:30 Diff Path Review Reviewed Medical Necessity - Tobacco Use Smoking Status: Current every day smoker Assessment/Plan All Active Problems (Last Reviewed 10/20/18 @ 10:00 by Caren Zavala) Active labor at term (Acute) General counseling and advice for contraceptive management (Acute) Pneumonia affecting in second trimester (Acute) UTI in (Acute) (Acute) Supervision of normal first (Acute) s/p PPD # 2 1. routine post delivery care 2. breast feeding- support given 3. rh positive 4. rubella immune 5. BP now WNL 6. Prefers dc tomorrow.
--- NOTE | 2018-11-05 10:27 | DCINST_ITS ---
Additional Instructions: If you experience any of the following, contact your healthcare provider. * Bleeding that soaks a pad every hour for 2 hours * Fever 100.4 or higher * Unrelieved incision or abdominal pain * Swelling, redness, discharge or bleeding from your incision or episiotomy site * Your incision begins to separate * Problems urinating (including inability to urinate or burning while urinating). * Visual changes * Severe headache * Flu-like symptoms * Pain or redness in one of both of your breasts * Pain, warmth, tenderness or swelling in your legs, especially the calf area * Frequent nausea and vomiting * Symptoms of depression or anxiety If you experience any of the following, call 911 or go to the nearest Emergency Room. * Chest pain * Problems breathing * Seizure activity * Partial or complete paralysis of a body part, slurred speech, weakness or drooping of the face, or a sudden inability to walk or hold your balance Allergies/Adverse Reactions: Allergies Penicillins Allergy (Verified 10/20/18 10:00) Hives Medications to take at Discharge Pnv No.95/Ferrous Fum/Folic AC [ Caplet] 11 tab PO DAILY 06/08/18 Primary Care Physician: Jabari Rubin MD [Primary Care Provider] - Test Results: Test results from this visit will be discussed in further detail at your follow- up appointment, if applicable.
--- NOTE | 2018-11-05 10:27 | PCM.DCVAG ---
Additional Instructions: If you experience any of the following, contact your healthcare provider. Bleeding that soaks a pad every hour for 2 hours Fever 100.4 or higher Unrelieved incision or abdominal pain Swelling, redness, discharge or bleeding from your incision or episiotomy site Your incision begins to separate Problems urinating (including inability to urinate or burning while urinating). Visual changes Severe headache Flu-like symptoms Pain or redness in one of both of your breasts Pain, warmth, tenderness or swelling in your legs, especially the calf area Frequent nausea and vomiting Symptoms of depression or anxiety If you experience any of the following, call 911 or go to the nearest Emergency Room. Chest pain Problems breathing Seizure activity Partial or complete paralysis of a body part, slurred speech, weakness or drooping of the face, or a sudden inability to walk or hold your balance Allergies/Adverse Reactions: Allergies Penicillins Allergy (Verified 10/20/18 10:00) Hives Medications to take at Discharge Pnv No.95/Ferrous Fum/Folic AC [ Caplet] 11 tab PO DAILY 06/08/18 Primary Care Physician: Jabari Rubin MD [Primary Care Provider] - Test Results: Test results from this visit will be discussed in further detail at your follow-up appointment, if applicable.
--- NOTE | 2018-11-05 10:30 | PN.OBGYN_ITS ---
Patient Problems: Active and Suspected Problems (Last Reviewed 10/20/18 @ 10:00 by Caren Zavala) Active labor at term (Acute) Subjective: Patient plans for discharge today. - Physical Exam Vital Signs Temp Pulse Resp BP Pulse Ox 97.8 F 74 15 122/73 H 98 11/05/18 02:30 11/05/18 06:13 11/05/18 05:15 11/05/18 05:15 11/05/18 05:15 Oxygen Delivery Method Room Air Weight: 215 lb 8 oz Body Mass Index (BMI) 39.4 Intake and Output for Last 24 Hours 11/03/18 11/04/18 11/05/18 23:59 23:59 23:59 Intake Total 2899 / 2899 724 / 724 Output Total 200 / 200 2975 / 2975 1650 / 1650 Balance -200 / -200 -76 / -76 -926 / -926 Laboratory Tests Past 24 Hrs 11/04/18 05:30 Diff Path Review Reviewed Medical Necessity - Tobacco Use Smoking Status: Current every day smoker Assessment/Plan All Active Problems (Last Reviewed 10/20/18 @ 10:00 by Caren Zavala) Active labor at term (Acute) General counseling and advice for contraceptive management (Acute) Pneumonia affecting in second trimester (Acute) UTI in (Acute) (Acute) Supervision of normal first (Acute) Rx labetalol 200mg bid sent [facility] pharmacy Needs BP check 1 week in office
== END 2018-11-05 14:30 | disposition home or self-care (01) | DRG 560 ==
LOC: WP 09:54 → WPOUT 09:54
PROVIDERS: Admitting Provider Obstetrics & Gynecology; Family Provider Family Medicine; PCP Family Medicine; Referring Provider Obstetrics & Gynecology; Visit Provider Obstetrics & Gynecology
DX: O16.4 Unspecified maternal hypertension, complicating childbirth (principal); O42.02 Full-term premature rupture of membranes, onset of labor within 24 hours of rupture; O70.0 First degree perineal laceration during delivery; O99.334 Smoking (tobacco) complicating childbirth; F17.200 Nicotine dependence, unspecified, uncomplicated; Z3A.40 40 weeks gestation of pregnancy; Z37.0 Single live birth
CPT/HCPCS: 59025; 59050; 80053; 84112; 85025; 86850; 86900; 99218; J7120; A4216; G0378

== ENCOUNTER → 2019-04-10 13:51 | Outpatient (CLI) | payer MEDICAID, SELFPAY ==
[2018-12-22 14:37] VITALS: BMI 39.4
--- NOTE | 2019-04-10 13:56 | RAD_ITS ---
STUDY: X-RAY - RIGHT WRIST REASON FOR EXAM: Female, 19 years old. right wrist pain, pushed off wrist when getting up and now pain x 3 days TECHNIQUE: 3 view(s) of the wrist were obtained. COMPARISON: None. FINDINGS: Normal visualized distal radius and ulna. Normal radiocarpal articulation. Normal distal radioulnar articulation. Normal carpal bones. Normal carpal articulations. Normal carpometacarpal articulation of the thumb. Normal second through fifth carpometacarpal articulations. Normal visualized metacarpal bones. The soft tissue structures are unremarkable. There is no demonstrated acute fracture. RAD/Wrist min 3 Views IMPRESSION: Normal x-ray examination of the wrist. Electronically Signed: Joanne Smith MD at 1:13 EST , Service support ,
== END ==
PROVIDERS: PCP Family Medicine; Referring Provider Family Medicine; Visit Provider Family Medicine
DX: S63.501A Unspecified sprain of right wrist, initial encounter (principal)
CPT/HCPCS: 73110

== ENCOUNTER → 2019-04-27 17:01 | Outpatient (CLI) | payer MEDICAID, SELFPAY ==
[2019-04-27 08:21] VITALS: BMI 39.4
[2019-05-01 15:04] LABS: HPV Reflexed? NOT INDICATED
== END ==
PROVIDERS: PCP Family Medicine; Referring Provider Obstetrics & Gynecology; Visit Provider Obstetrics & Gynecology
DX: Z12.4 Encounter for screening for malignant neoplasm of cervix (principal)
CPT/HCPCS: 88175; G0145

== ENCOUNTER → 2019-09-01 | Outpatient (CLI) | payer MEDICAID, SELFPAY ==
[2019-08-07 08:23] VITALS: BMI 39.4
== END | disposition home or self-care (01) ==
LOC: LABSPEC 16:20
PROVIDERS: PCP Family Medicine; Referring Provider Family Medicine; Visit Provider Family Medicine
DX: J02.9 Acute pharyngitis, unspecified (principal)
CPT/HCPCS: 87070; 87077

== ENCOUNTER → 2020-06-13 08:38 | Outpatient (CLI) | payer BC, MEDICAID, SELFPAY ==
[2019-08-07 08:23] VITALS: BMI 39.4
--- NOTE | 2020-06-13 08:42 | US_ITS ---
STUDY: ABDOMINAL ULTRASOUND - RIGHT UPPER QUADRANT REASON FOR VISIT: Female, 20 years old ABD PAIN/ n/v x 1 month TECHNIQUE: Ultrasound evaluation of the right upper quadrant was performed with real-time and static tee-scale imaging. TECHNICAL QUALITY: Adequate. COMPARISON: None. FINDINGS: Liver: The liver measures 17.5 cm. There is increased echogenicity consistent with fatty infiltration. The bile ducts are within normal limits. There is hepatic color flow. The direction of portal flow is hepatopetal. There is no demonstrated mass lesion. Gallbladder: Normal distended gallbladder. The gallbladder wall measures 2.0 mm. There is a negative sonographic Garcia''s sign. There is no pericholecystic fluid. There are no gallstones. Common Bile Duct (C.B.D.): The common bile duct measures 4.3 mm. Pancreas: Normal size of the head, body and tail of the pancreas. There is normal echogenicity of the pancreas. There is no demonstrated pancreatic mass or cyst. Right Kidney: Normal size of the right kidney. The right kidney measures 12.1 cm x 5.7 cm x 5 cm. Normal renal cortex. The right cortex measures 1.7 cm. There is no demonstrated renal mass or cyst. There is no right hydronephrosis. US/Abdomen Limited IMPRESSION: Fatty infiltration of the liver. Electronically Signed: Krish Kramer MD at 10:39 EDT , Service support ,
== END ==
PROVIDERS: PCP Family Medicine; Referring Provider Family Medicine; Visit Provider Family Medicine
DX: R10.9 Unspecified abdominal pain (principal)
CPT/HCPCS: 76705

== ENCOUNTER → 2020-06-24 10:14 | Outpatient (CLI) | payer BC, MEDICAID, SELFPAY ==
[2019-08-07 08:23] VITALS: BMI 39.4
--- NOTE | 2020-06-24 10:18 | NM_ITS ---
CLINICAL: 20-year-old female with reported history of abdominal pain. RADIONUCLIDE HEPATOBILIARY SCINTIGRAPHY COMPARISON: Abdominal ultrasound report 06/13/2020 FINDINGS: Following the intravenous administration of 5.6 mCi of 99m Tc Mebrofenin, hepatobiliary images reveal: 1. Relatively prompt and homogeneous radiopharmaceutical concentration is noted by a normal sized liver. No parenchymal defects are identified. 2. Gallbladder activity is identified at 15 minutes post radiopharmaceutical administration. 3. Small intestinal tract is observed at 30 minutes following tracer injection. 4. Washout of the radiopharmaceutical by the hepatic parenchyma appears qualitatively normal. Cholecystokinin (0.02 ug/kg) was administered intravenously over a 30-minute period. The post CCK gallbladder ejection fraction calculated at 21 minutes following Cholecystokinin administration was noted to be 39.0 % (normal greater than 35%). During 30 minutes of post CCK imaging, there is no scintigraphic evidence of reflux of the radiotracer into the common hepatic duct or refilling of the gallbladder. There is scintigraphic evidence of post CCK duodenal gastric reflux. NM/Hepatobilliary Img w/Pharm Int IMPRESSION: 1. A gallbladder ejection fraction calculated to be greater than 35% following the administration of Cholecystokinin makes the probability of functional hepatobiliary disease (gallbladder and/or sphincter of Oddi dyskinesia) and/or organic hepatobiliary disease (chronic acalculous cholecystitis and/or cystic duct syndrome) to be low. (Pratibha Gutierrez et al, Journal of Nuclear Medicine 32:1695, 1990). 2. There is scintigraphic evidence of post CCK duodenal-gastric reflux as defined above. (Mai et al, Nucl Med Giovana Hallie Press pg. 35, 1980). Electronically Signed: Manjeet Rausch DO at 8:14 EDT Tel , Service support ,
== END ==
PROVIDERS: PCP Family Medicine; Referring Provider Family Medicine; Visit Provider Family Medicine
DX: R10.9 Unspecified abdominal pain (principal)
CPT/HCPCS: 78227; A9537; J2805

== ENCOUNTER 2021-05-08 15:04 | Outpatient (CLI) | payer MEDICAID, SELFPAY ==
[2021-05-08 18:15] LABS: Absolute Lymphocyte Count 4.67 X10^3/uL (0.83-4.51); Absolute Neutrophil Count 10.7 X10^3/uL (2.0-7.7); Basophil# 0.07 X10^3/uL; Basophil% 0.4 % (0-1); Eosinophil# 0.33 X10^3/uL; Eosinophils% 1.9 % (0-5); Hematocrit 47.6 % (37-47); Hemoglobin 15.7 g/dL (12.0-15.0); Lymphocyte # 4.67 X10^3/ul (0.83-4.51); Lymphocyte % 27.5 % (19-41); Mean Corpuscular Hgb 31.3 pg (27.0-32.0); Mean Platelet Vol. 10.4 fl (6.2-12.0); Monocyte# 1.15 X10^3/uL; Monocyte% 6.8 % (0-10); NRBC Flagged by Analyzer 0 % (0-5); Neutrophil # 10.68 X10^3/uL (2.7-7.7); Platelet Count 329 K/mm3 (150-450); RBC Distribution Width CV 11.9 % (11.6-14.6); RBC Distribution Width SD 41.6 fl (35.1-43.9); Red Blood Count 5.01 M/mm3 (4.2-5.4)
[2021-05-08 18:44] LABS: ALB/GLOB Ratio 0.9 RATIO (0.9-2.4); AST(SGOT) 34 U/L (15-37); Alanine Aminotransfer ALT/SGPT 69 U/L (13-56); Albumin, Serum 3.7 g/dL (3.2-5.0); Alkaline Phosphatase 56 U/L (45-117); Anion Gap 8 (5-15); BUN 8 mg/dL (7-18); BUN/Creat Ratio 10.8 RATIO (10-20); Calcium,Total 9.2 mg/dL (8.5-10.1); Chloride 104 mmol/L (98-107); Creatinine, Serum 0.74 mg/dL (0.55-1.02); EST Glomerular Filtration Rate 103 mL/min (>60); Est Glom Filt Rate - Afr Amer 125 mL/min (>60); Glucose 119 mg/dL (74-106); Potassium 4.1 mmol/L (3.5-5.1); Protein, Total 7.7 g/dL (6.4-8.2); Sodium Level 136 mmol/L (136-145); Thyroid Stim Hormone (TSH) 1.19 uIU/mL (0.358-3.74)
== END 2021-05-08 23:59 | disposition home or self-care (01) ==
LOC: MFPLAB 15:05
PROVIDERS: PCP Family Medicine; Visit Provider Family Medicine
DX: F41.9 Anxiety disorder, unspecified (principal)
CPT/HCPCS: 36415; 80053; 84443; 85025

== ENCOUNTER 2021-05-11 12:03 | Outpatient (CLI) | payer MEDICAID, SELFPAY ==
[2021-05-12 08:39] LABS: Hepatitis B Surface Antigen Non-Reactive (Nonreactive); Hepatitis C Antibody Non-Reactive (Nonreactive)
== END 2021-05-11 23:59 | disposition home or self-care (01) ==
LOC: MFPLAB 12:04
PROVIDERS: PCP Family Medicine; Referring Provider Family Medicine; Visit Provider Family Medicine
DX: R74.01 Elevation of levels of liver transaminase levels (principal)
CPT/HCPCS: 36415; 86803; 87340

== ENCOUNTER → 2021-10-11 | Outpatient (CLI) | payer MEDICAID, SELFPAY ==
[2021-10-11 17:10] LABS: HIV - WCH Non-Reactive (Nonreactive); Hepatitis C Antibody Non-Reactive (Nonreactive); Syphilis Antibodies Non-reactive
[2021-10-14 08:19] LABS: HSV 1 IgG 1.22 index (0.00-0.90); HSV 2 IgG < 0.91 index (0.00-0.90)
[2021-10-16 01:06] LABS: Chlamydia By Nucleic Acid AMP Negative (Negative)
[2021-10-16 09:15] LABS: Gonococcus By Nucleic Acid AMP Negative (Negative)
== END | disposition home or self-care (01) ==
PROVIDERS: PCP Family Medicine; Referring Provider Nurse Practitioner Women's Health; Visit Provider Nurse Practitioner Women's Health
DX: Z20.2 Contact with and (suspected) exposure to infections with a predominantly sexual mode of transmission (principal)
CPT/HCPCS: 36415; 86695; 86696; 86703; 86780; 86803; 87491; 87591

== ENCOUNTER → 2021-11-24 | Outpatient (CLI) | payer MEDICAID, SELFPAY ==
--- NOTE | 2021-11-24 11:59 | RAD_ITS ---
STUDY: X-RAY - LUMBAR SPINE REASON FOR EXAM: Female, 21 years old. BACK PAIN TECHNIQUE: XR Spine Lumbar Min 4 Views COMPARISON: None FINDINGS: Normal lumbar lordosis. There is a levoscoliosis of the lumbar spine. There is a normal alignment of the vertebrae. Normal vertebral bodies and endplates. Normal disc space heights. The soft tissue structures are unremarkable. RAD/L/S Spine Min 4 Views IMPRESSION: There is a levoscoliosis of the lumbar spine. Electronically Signed: Abrahan Garcia MD at 14:48 EDT ,
--- NOTE | 2021-11-24 12:00 | RAD_ITS ---
STUDY: X-RAY - THORACIC SPINE REASON FOR EXAM: Female, 21 years old. BACK PAIN TECHNIQUE: XR Spine Thoracic 3 Views COMPARISON: None FINDINGS: Normal kyphosis of the thoracic spine. There is dextroscoliosis. There is multilevel endplate spondylosis of the thoracic vertebrae. Normal disc space heights. The soft tissue structures are unremarkable. RAD/Thoracic Spine 3 Views IMPRESSION: There is dextroscoliosis. There are early degenerative findings of the thoracic spine. Electronically Signed: Abrahan Garcia MD at 14:49 EDT ,
== END | disposition home or self-care (01) ==
LOC: MTRAD 11:58
PROVIDERS: PCP Family Medicine; Referring Provider Family Medicine; Visit Provider Family Medicine
DX: S29.019S Strain of muscle and tendon of unspecified wall of thorax, sequela (principal); S39.012S Strain of muscle, fascia and tendon of lower back, sequela
CPT/HCPCS: 72072; 72110

== ENCOUNTER 2022-01-02 10:57 | Outpatient (RCR) | payer MEDICAID, SELFPAY | END 2022-01-02 19:00 | disposition home or self-care (01) | LOC: PT 10:57 | PROVIDERS: PCP Family Medicine; Referring Provider Family Medicine; Visit Provider Family Medicine | DX: S29.012D Strain of muscle and tendon of back wall of thorax, subsequent encounter (principal); S39.012D Strain of muscle, fascia and tendon of lower back, subsequent encounter; X58.XXXD Exposure to other specified factors, subsequent encounter ==

== ENCOUNTER → 2023-04-17 | Outpatient (CLI) | payer MEDICAID, SELFPAY ==
--- OUTSIDE RECORDS SUMMARY | 2023-04-17 11:40 | XMS RPT_ITS | CCD ---
Author Name Unknown Address [id number] [place] [address] Organization [facility] Care Team Providers Care Lot Boss Name Role Phone YAZAN LYONS Attending Unavailable TRINH BROWN Referring Unavailabl e NO PRIMARY CARE, Primary Care Unavailable SHEYLA MORENO Attending Unavailable TRINH BROWN Referring Unavailabl e NO PRIMARY CARE, Primary Care Unavailable REAL GONZALEZ Attending TRINH Kat Referring Unavailabl e NO PRIMARY CARE, Primary Care Unavailable PHYSICIAN, NOT RECORDED Primary Care Physician MARTHA Tracy MD Attending Unavailable PHYSICIAN, NOT RECORDED Primary Care Unavaila ble RUTHY MCCULLOUGH, DR ONIEL Longo Attending Unavailabl e PHYSICIAN, NOT RECORDED Primary Care Unavaila ble PHYSICIAN, NOT RECORDED Primary Care Unavaila adrian TELLO CUSTOMER 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 Medications Current Medications Medication Drug Class(es) Dates Sig (Normalized) Sig (Original) acetaminophen 325 mg / HYDROcodone bitartrate 5 mg oral tablet (1 source) Opioid Agonist Start: 12-17-2021 End: 12-20-2021 take 1 tablet by mouth four times daily as needed for pain Morenci 325- 5 mg oral tablet Dose = 1 tab(s), Oral, QID, PRN as needed for pain, X 3 day(s), # 12 tab(s), 0 Refill(s), May take 1-2 tablets per dose, Cholelithiasis, 82.6 Start Date: 12/17/21 Stop Date: 12/20/21 Status: Ordered cephalexin 500 mg oral capsule (1 source) Cephalosporin Antibacterial Start: 08-19-2022 End: 08-26-2022 cephalexin 500 mg oral capsule Dose : 500 mg = 1 cap(s), Oral, q6hr, X 7 day(s), # 28 cap(s), 0 Refill(s), 08/26/22 13:10:00 EDT, Puncture wound Tendonitis, 82.8 Start Date: 08/19/22 Stop Date: 08/26/22 Status: Ordered ondansetron 4 mg oral tablet (1 source) Serotonin-3 Receptor Antagonist Start: 12-17-2021 End: 12-22-2021 Zofran 4 mg oral tablet Dose : 4 mg = 1 tab(s), Oral, q8h, X 5 day(s), # 15 tab(s), 0 Refill(s), 12/22/21 4:45:00 EDT, Cholelithiasis Start Date: 12/17/21 Stop Date: 12/22/21 Status: Ordered Problems Active Problems Problem Classification Problem Date Documented Da te Episodic/Chronic Nausea and vomiting (1 source) Nausea 12-18-2021 Episodic Other aftercare (1 source) Surgical follow-up 01-01-2022 Episodic Other connective tissue disease (1 source) Enthesopathy; Translations: [Enthesopathy, unspecified] Onset: 08-19-2022 Episodic Other injuries and conditions due to external causes (1 source) Traumatic AND/OR non-traumatic injury; Translations: [Other injury of unspecified body region, initial encounter] Onset: 08-19-2022 Episodic Past or Other Problems Problem Classification Problem Date Documented Date Episodic/Chronic Biliary tract disease (4 sources) Cholelithiasis without obstruction; Translations: [Calculus of gallbladder without cholecystitis without obstruction] Onset: 12-17-2021 Episodic Results Test Name Value Interpretation Reference Range Facil ity Vital Signs Date Time Vital Sign Value Performing Clinician Faci lity 08-19-2022 13:34-0400 Diastolic Blood Pressure Non-Invasive 89 [address] [facility] 08-19-2022 13:34-0400 Heart rate 57 /min MARTHA OLIVARES MD [facility] 08-19-2022 13:34-0400 Respiratory rate 20 /min MARTHA OLIVARES MD [facility] 08-19-2022 13:34-0400 Systolic Blood Pressure Non-Invasive 132 [address] [facility] 08-19-2022 12:08-0400 Blood Pressure Cuff Size MARTHA OLIVARES MD [facility] 08-19-2022 12:08-0400 Blood Pressure Location MARTHA OLIVARES MD [facility] 08-19-2022 12:08-0400 Blood Pressure Method MARTHA OLIVARES MD [facility] 08-19-2022 12:08-0400 Body temperature 98.6 [degF] MARTHA OLIVARES MD [facility] 08-19-2022 12:08-0400 Diastolic Blood Pressure Non-Invasive 87 [address] [facility] 08-19-2022 12:08-0400 Heart rate 88 /min MARTHA OLIVARES MD [facility] 08-19-2022 12:08-0400 Respiratory rate 18 /min MARTHA OLIVARES MD [facility] 08-19-2022 12:08-0400 Systolic Blood Pressure Non-Invasive 150 [address] [facility] 12-17-2021 03:48-0400 Body temperature 98.42 [degF] DR ONIEL BLISS DO [facility] 12-17-2021 03:48-0400 Diastolic blood pressure 87 mm[Hg] DR ONIEL BLISS DO [facility] 12-17-2021 03:48-0400 Heart rate 83 /min DR ONIEL BLISS DO [facility] 12-17-2021 03:48-0400 Mean blood pressure 106 mm[Hg] DR ONIEL BLISS DO [facility] 12-17-2021 03:48-0400 Respiratory rate 20 /min DR ONIEL BLISS DO [facility] 12-17-2021 03:48-0400 Systolic blood pressure 144 mm[Hg] DR ONIEL BLISS DO [facility] Encounters Encounter Date Encounter Type Care Provider Facility Start: 04-05-2023 Telephone encounter Luz wells MD Work Phone: [facility] Procedures Date Procedure Procedure Detail Performing Clinician Start: 12-18-2021 Robot assisted lapar oscopic cholecystectomy MARTHA OLIVARES MD Back structure, excl uding neck (body structure) DR ONIEL BLISS DO Plan of Treatment Date Care Activity Detail Author Start: 2058 RSV Immunization age d 60 or older (1 - 1-dose 60+ series) RSV Immunization aged 60 or older (1 - 1-dose 60+ series) [facility] Start: 2048 Zoster Vaccines (1 of 2) Zoster Vacc harriet (1 of 2) [facility] Start: 08-19-2032 DTaP/Tdap/Td Vaccine s (2 - Td or Tdap) DTaP/Tdap/Td Vaccines (2 - Td or Tdap) [facility] Start: 04-29-2023 End: 04-29-2023 Patient encounter procedure 04/29/2023 3:30 PM EST Office Visit [facility] [address] [place] [address] Luz Salgado MD [address] [place] [address] [facility] Start: 11-23-2022 Influenza vaccination Influenza Vacc ine (#1) [facility] Start: 2019 Screening for malign ant neoplasm of cervix Pap Smear [facility] Start: 2016 Hepatitis C screening Hepatitis C Sc reening [facility] Start: 2010 Depression Screening Depression Scre ening [facility] Start: 2009 HPV Vaccines (1 - 2- dose series) HPV Vaccines (1 - 2-dose series) [facility] Start: 1999 MMR Vaccines (1 of 1 - Standard series) MMR Vaccines (1 of 1 - Standard series) [facility] Start: 1999 Varicella vaccination Varicell a Vaccines (1 of 2 - 2-dose childhood series) [facility] Start: 1998 COVID-19 Vaccine (#1) COVID-19 Vacci ne (#1) [facility] Start: 1998 Hepatitis B Vaccines (1 of 3 - 3-dose series) Hepatitis B Vaccines (1 of 3 - 3-dose series) [facility] Start: 1998 HIV screening HIV Screening [facility] Immunizations Immunization Date Immunization Notes Care Provider Fa cility 08-19-2022 tetanus toxoid, redu jasmin diphtheria toxoid, and acellular pertussis vaccine, adsorbed MARTHA OLIVARES MD [facility] Payers Date Payer Category Payer Unknown [id number] 2022 Medicaid ANTHEM MEDICAID ANTHEM MEDICAID ODM [id number] 2022-Present [address] [place] [address] Medicaid HMO [id number] 2021 Unknown [id number] 1998 Unknown [id number] 1998 Unknown [id number] 1998 Unknown [id number] 1998 Unknown [id number] 1998 Unknown [id number] 1998 Unknown [id number] Medicaid [id number] Unknown [id number] Social History Date Type Detail Facility Tobacco smoking status No Smokin g Status Entered [facility] Sex Assigned At Female [facility] Start: 01-01-2022 Tobacco smoking status Heavy t obacco smoker (finding) [facility] Tobacco smoking stat [facility] Tobacco smoking consumption unknown [facility] Start: 1998 Sex Assigned At Not on file [facility] Gender identity Not on file [facility] Functional Status Date Assessment Result Facility 08-19-2022 Functional Status Independent [facility] 08-19-2022 Functional Status Standard Safet y ID band on, Allergy Band on, Call device within reach, Bed in low position, Wheels locked, personal items within reach, Visitor at bedside, Safety level maintained [facility] 12-17-2021 Functional Status Activity Naima casey Minimum assistance [facility] 12-17-2021 Functional Status Standard Safet y ID band on, Allergy Band on, Call device within reach, Bed in low position, Wheels locked, Upper/Half-Length side-rails up, Phone within reach, Bedside Cart Locked [facility] Mental Status Date Assessment Result Facility 08-19-2022 Mental Status Orientation Oriented x 4 [facility] 12-17-2021 Mental Status Orientation Oriented x 4 [facility] 12-17-2021 Mental Status [facility] Telephone encounter Note 04-05-2023 Telephone Encounter - Tatiana Taylor - 04/05/2023 10:29 AM EST Note Date & Type Note Facility 04-05-2023 Telephone encounter Note Form atting of this note might be different from the original. Name of caller: Josefa Relation to patient: patient Contact phone number: [phone] Appointment scheduled with: Dr Salgado Appointment date & time: 04/29 330 Reason for visit (are you having any symptoms) : wellness Transportation issues/ concerns: no Special accommodations? ( wheel chair, etc) : no Current medications: no Any refills need: no Any chronic conditions the provider should be aware of: no [facility] 04-05-2023 Telephone Encounter - Tatiana Taylor - 04/05/2023 10:29 AM EST Note Date & Type Note Facility 04-05-2023 Miscellaneous Notes Formattin g of this note might be different from the original. Name of caller: Josefa Relation to patient: patient Contact phone number: [phone] Appointment scheduled with: Dr Salgado Appointment date & time: 04/29 330 Reason for visit (are you having any symptoms) : wellness Transportation issues/ concerns: no Special accommodations? ( wheel chair, etc) : no Current medications: no Any refills need: no Any chronic conditions the provider should be aware of: no documented in this encounter [facility] Discharge instructions 08-19-2022 Note Date & Type Note Facility 08-19-2022 Hospital Discharg e instructions Patient Education 08/19/2022 13:09:56 Puncture Wound (General) Puncture Wound A puncture wound occurs when a pointed object pushes into the skin. It may go into the tissues below the skin, including fat and muscle. This type of wound is narrow and deep and can be hard to clean. Because of this, puncture wounds are at high risk for becoming infected. X-rays may be done to check the wound for objects stuck under the skin. Your may also need a tetanus shot. This is given if you are not up-to-date on this vaccination and the object that caused the wound may lead to tetanus. Home care Your healthcare provider may prescribe an antibiotic. This is to help prevent infection. Follow all instructions for taking this medicine. Take the medicine every day until it is gone or you are told to stop. You should not have any left over. The healthcare provider may prescribe medicines for pain. Follow instructions for taking them. You can take acetaminophen or ibuprofen for pain, unless you were given a different pain medicine to use. Follow the healthcare provider s instructions on how to care for the wound. Keep the wound clean and dry. Don't get the wound wet until you are told it is OK to do so. If the area gets wet, gently pat it dry with a clean cloth. Replace the wet bandage with a dry one. If a bandage was applied and it becomes wet or dirty, replace it. Otherwise, leave it in place for the first 24 hours. Once you can get the wound wet, you may shower as usual but don't soak the wound in water (no tub baths or swimming) Even with proper treatment, a puncture wound may become infected. Check the wound daily for signs of infection listed below. Follow-up care Follow up with your healthcare provider, or as advised. When to seek medical advice Call your healthcare provider right away if any of these occur: Signs of infection, including: oIncreasing redness or swelling around the wound oIncreased warmth of the wound oWorsening pain oRed streaking lines away from the wound oDraining pus Fever of 100.4 F (38. C) or higher, or as directed by your healthcare provider Wound changes colors Numbness around the wound Decreased movement around the injured area [id number] [employer]. [address] [place] [address], [place] [address]. All rights reserved. This information is not intended as a substitute for professional medical care. Always follow your healthcare professional's instructions. 08/19/2022 13:09:47 Tendonitis Tendonitis A tendon is the thick fibrous cord that joins muscle to bone and allows joints to move. When a tendon becomes inflamed, it is called tendonitis. This can occur from overuse, injury, or infection. This usually involves the shoulders, forearm, wrist, hands and feet. Symptoms include pain, swelling and tenderness to the touch. Moving the joint increases the pain. It takes 4 to 6 weeks or more for tendonitis to heal. It is treated by preventing motion of the tendon, occasionally with a splint or brace, and the use of anti-inflammatory medicine. Home care Some people find relief with ice packs. These can be crushed or cubed ice in a plastic bag or a bag of frozen vegetables wrapped in a thin towel. Other people get better relief with heat. This can include a hot shower, hot bath, or a moist towel warmed in a microwave. Try each and use the method that feels best, for 15 to 20 minutes several times a day. Rest the inflamed joint and protect it from movement. You may use [id number] ibuprofen or naproxen to treat pain and inflammation, unless another medicine was prescribed. If you can't take these medicines, acetaminophen may help with the pain, but does not treat inflammation. If you have chronic liver or kidney disease or ever had a stomach ulcer or gastrointestinal bleeding, talk with your doctor before using these medicines. As your symptoms improve, begin gradual motion at the involved joint. Follow-up care Follow up with your healthcare provider if you are not improving after 5 to 7 days of treatment. When to seek medical advice Call your healthcare provider right away if any of these occur: Redness over the painful area Increasing pain or swelling at the joint Fever lasting 24 to 48 hours or chills, or as advised by your healthcare provider [phone] [employer]. [address] [place] [address]. All rights reserved. This information is not intended as a substitute for professional medical care. Always follow your healthcare professional's instructions. Follow Up Care 08/19/2022 11:58:46 With:RODGER COULTER Address: [address] [place] [address], [address] [place] [address]- [phone] Business (1) When:2-4 days Comments:Schedule appointment as soon as possibleReturn to ED if symptoms worsenRange of motion daily. Activty as described. May use aleve and tylenol.Return for symptoms as described With:NOT PHYSICIAN Address:Unknown When:2-[address] [facility] Clinical Note 08-19-2022 Note Date & Type Note Facility 08-19-2022 Note Discharge Instructions Thank you for allowing Ana to assist you with your healthcare needs. The following is important discharge information regarding your hospital visit. Diagnosis from Today's Visit Puncture wound Tendonitis Knee pain-swelling What to Do Next Instructions from Your Care Team Discharge Return to Work, School, or Sports (Return to Work, School, or Sports) - Ordered -- 08/21/22, May return to: work, 08/19/22 13:10:00 EDT Post Acute Orders No qualifying data available. You Need to Schedule the Following Appointments Follow Up with RODGER COULTER When Within 2-4 days Why: Schedule appointment as soon as possible Return to ED if symptoms worsen Range of motion daily. Activty as described. May use aleve and tylenol. Return for symptoms as described Where: [address] [place] [address], [address] [place] [address]- [phone] Business (1) Follow Up with NOT PHYSICIAN When Within 2-4 days Allergies penicillin (Rash) Immunizations This Visit Given Vaccine Datetetanus/diphth/pertuss (Tdap) adult/adol 08/19/2022 Medications Please ask your primary doctor or pharmacist before taking any other medication not listed, including over the counter drugs, herbal medications, vitamins and or supplements as they may interact with your home medications. What How Much When Why Instructions Last Dose New cephalexin (cephalexin 500 mg oral capsule) 1 cap by mouth Every 6 hours Puncture wound Tendonitis Duration: 7 Days Printed Prescription Please take this list to your next doctor s visit. Bring all medications you take, including over the counter medications, herbals and other supplements with you to your doctor s visit. Patients and families are reminded to discard old lists and to update any records with all medication providers or retail pharmacies. Medication Leaflets cephalexin (sef a ROZ in) Keflex What is the most important information I should know about cephalexin? You should not use this medicine if you are allergic to cephalexin or to similar antibiotics, such as Ceftin, Cefzil, Omnicef, and others. Tell your doctor if you are allergic to any drugs, especially penicillins or other antibiotics. What is cephalexin? Cephalexin is a cephalosporin (SEF a low spor in) antibiotic that is used to treat bacterial infections of the lungs, ear, skin, bones, bladder, and kidneys. Cephalexin is used to treat infections in adults and children who are at least 1 year old. Cephalexin may also be used for purposes not listed in this medication guide. What should I discuss with my healthcare provider before taking cephalexin? You should not use this medicine if you are allergic to cephalexin or any other cephalosporin antibiotic (cefdinir, cefadroxil, cefoxitin, cefprozil, ceftriaxone, cefuroxime, Omnicef, and others). Tell your doctor if you have ever had: an allergy to any drug (especially penicillin); liver or kidney disease; or intestinal problems, such as colitis. The liquid form of cephalexin may contain sugar. This may affect you if you have diabetes. Tell your doctor if you are or breast-feeding. How should I take cephalexin? Follow all directions on your prescription label and read all medication guides or instruction sheets. Use the medicine exactly as directed. Do not use cephalexin to treat any condition that has not been checked by your doctor. Measure liquid medicine carefully. Use the dosing syringe provided, or use a medicine dose-measuring device (not a kitchen spoon). Use this medicine for the full prescribed length of time, even if your symptoms quickly improve. Skipping doses can increase your risk of infection that is resistant to medication. Cephalexin will not treat a viral infection such as the flu or a common cold. Do not share cephalexin with another person, even if they have the same symptoms you have. This medicine can affect the results of certain medical tests. Tell any doctor who treats you that you are using cephalexin. Store the tablets and capsules at room temperature away from moisture, heat, and light. Store the liquid medicine in the refrigerator. Throw away any unused liquid after 14 days. What happens if I miss a dose? Take the medicine as soon as you can, but skip the missed dose if it is almost time for your next dose. Do not take two doses at one time. What happens if I overdose? Seek emergency medical attention or call the Poison Help line at . Overdose symptoms may include nausea, vomiting, stomach pain, diarrhea, and blood in your urine. What should I avoid while taking cephalexin? Antibiotic medicines can cause diarrhea, which may be a sign of a new infection. If you have diarrhea that is watery or bloody, call your doctor before using anti-diarrhea medicine. What are the possible side effects of cephalexin? Get emergency medical help if you have signs of an allergic reaction (hives, difficult breathing, swelling in your face or throat) or a severe skin reaction (fever, sore throat, burning eyes, skin pain, red or purple skin rash with blistering and peeling). Call your doctor at once if you have: severe stomach pain, diarrhea that is watery or bloody (even if it occurs months after your last dose); unusual tiredness, feeling light-headed or short of breath; easy bruising, unusual bleeding, purple or red spots under your skin; a seizure; pale skin, cold hands and feet; yellowed skin, dark colored urine; fever, weakness; or pain in your side or lower back, painful urination. Common side effects may include: diarrhea; nausea, vomiting; indigestion, stomach pain; or vaginal itching or discharge. This is not a complete list of side effects and others may occur. Call your doctor for medical advice about side effects. You may report side effects to FDA at 3-627-WGP-4429. What other drugs will affect cephalexin? Tell your doctor about all your other medicines, especially: metformin; or probenecid. This list is not complete. Other drugs may affect cephalexin, including prescription and hrqi-[id number]-[id number] medicines, vitamins, and herbal products. Not all possible drug interactions are listed here. Where can I get more information? Your pharmacist can provide more information about cephalexin. Remember, keep this and all other medicines out of the reach of children, never share your medicines with others, and use this medication only for the indication prescribed. Every effort has been made to ensure that the information provided by [employer]. ('[employer]') is accurate, up-to-date, and complete, but no guarantee is made to that effect. Drug information contained herein may be time sensitive. [employer] information has been compiled for use by healthcare practitioners and consumers in the [place] and therefore [employer] does not warrant that uses outside of the [place] are appropriate, unless specifically indicated otherwise. [employer]'s drug information does not endorse drugs, diagnose patients or recommend therapy. [employer] drug information is an informational resource designed to assist licensed healthcare practitioners in caring for their patients and/or to serve consumers viewing this service as a supplement to, and not a substitute for, the expertise, skill, knowledge and judgment of healthcare practitioners. The absence of a warning for a given drug or drug combination in no way should be construed to indicate that the drug or drug combination is safe, effective or appropriate for any given patient. [facility] does not assume any responsibility for any aspect of healthcare administered with the aid of information [facility] provides. The information contained herein is not intended to cover all possible uses, directions, precautions, warnings, drug interactions, allergic reactions, or adverse effects. If you have questions about the drugs you are taking, check with your doctor, nurse or pharmacist. Copyright 8615-1483 [facility] [employer]. Version: 10.. Revision Date: 03/28/2020. Education Materials Puncture Wound A puncture wound occurs when a pointed object pushes into the skin. It may go into the tissues below the skin, including fat and muscle. This type of wound is narrow and deep and can be hard to clean. Because of this, puncture wounds are at high risk for becoming infected. X-rays may be done to check the wound for objects stuck under the skin. Your may also need a tetanus shot. This is given if you are not up-to-date on this vaccination and the object that caused the wound may lead to tetanus. Home care Your healthcare provider may prescribe an antibiotic. This is to help prevent infection. Follow all instructions for taking this medicine. Take the medicine every day until it is gone or you are told to stop. You should not have any left over. The healthcare provider may prescribe medicines for pain. Follow instructions for taking them. You can take acetaminophen or ibuprofen for pain, unless you were given a different pain medicine to use. Follow the healthcare provider s instructions on how to care for the wound. Keep the wound clean and dry. Don't get the wound wet until you are told it is OK to do so. If the area gets wet, gently pat it dry with a clean cloth. Replace the wet bandage with a dry one. If a bandage was applied and it becomes wet or dirty, replace it. Otherwise, leave it in place for the first 24 hours. Once you can get the wound wet, you may shower as usual but don't soak the wound in water (no tub baths or swimming) Even with proper treatment, a puncture wound may become infected. Check the wound daily for signs of infection listed below. Follow-up care Follow up with your healthcare provider, or as advised. When to seek medical advice Call your healthcare provider right away if any of these occur: Signs of infection, including: oIncreasing redness or swelling around the wound oIncreased warmth of the wound oWorsening pain oRed streaking lines away from the wound oDraining pus Fever of 100.4 F (38. C) or higher, or as directed by your healthcare provider Wound changes colors Numbness around the wound Decreased movement around the injured area 3755-6002 [employer]. [address] [place] [address]. All rights reserved. This information is not intended as a substitute for professional medical care. Always follow your healthcare professional's instructions. Tendonitis A tendon is the thick fibrous cord that joins muscle to bone and allows joints to move. When a tendon becomes inflamed, it is called tendonitis. This can occur from overuse, injury, or infection. This usually involves the shoulders, forearm, wrist, hands and feet. Symptoms include pain, swelling and tenderness to the touch. Moving the joint increases the pain. It takes 4 to 6 weeks or more for tendonitis to heal. It is treated by preventing motion of the tendon, occasionally with a splint or brace, and the use of anti-inflammatory medicine. Home care Some people find relief with ice packs. These can be crushed or cubed ice in a plastic bag or a bag of frozen vegetables wrapped in a thin towel. Other people get better relief with heat. This can include a hot shower, hot bath, or a moist towel warmed in a microwave. Try each and use the method that feels best, for 15 to 20 minutes several times a day. Rest the inflamed joint and protect it from movement. You may use miyx-nuj-weyfhqm ibuprofen or naproxen to treat pain and inflammation, unless another medicine was prescribed. If you can't take these medicines, acetaminophen may help with the pain, but does not treat inflammation. If you have chronic liver or kidney disease or ever had a stomach ulcer or gastrointestinal bleeding, talk with your doctor before using these medicines. As your symptoms improve, begin gradual motion at the involved joint. Follow-up care Follow up with your healthcare provider if you are not improving after 5 to 7 days of treatment. When to seek medical advice Call your healthcare provider right away if any of these occur: Redness over the painful area Increasing pain or swelling at the joint Fever lasting 24 to 48 hours or chills, or as advised by your healthcare provider [phone] [employer]. [address] [place] [address]. All rights reserved. This information is not intended as a substitute for professional medical care. Always follow your healthcare professional's instructions. Additional Information VACCINATE! IT SAVES LIVES! Members of the community who have not yet received the COVID-19 vaccine and would like to receive it can visit one of [facility] vaccine clinics. There are many vaccine clinic locations within the [facility]. For locations and available times, please visit www.[email or web address].[place].gov/. It is important to note that some COVID mobile vaccine clinics are held outdoors and may be canceled in rainy or stormy conditions. To learn more about pediatric vaccinations (ages 5-11), we invite you to visit the [facility] webpage. https://[email or web address].org/pages/2 930-Pskam-Pulmmecrjjq-Frequently-Asked -Questions.html To learn more about the COVID-19 vaccine, we invite you to visit the CDC website for a list of frequently asked questions. https://www.cdc.gov/coronavirus/2019-n cov/vaccines/faq.html [facility] Patient Portal Access Instructions: Stay connected with your healthcare team and access your personal medical information anytime with the [facility] Patient Portal. If you would like a full copy of your medical records please contact the [facility] Medical Records Department Saturday through Saturday between 8a.m. and 4:30p.m. Please follow the directions below to access the portal: 1.Access the email account you provided upon registration to the [facility].2.Look for an invitation email from [facility].3.Open the email and access the invitation link: Accept Invitation to [facility]4.Fill in the required da silva to create your account. Sign into [email or web address] with your username and password that you created in the above steps to stay up to date. You can then view a summary of results, a summary of your visits, and the ability to download your summaries to your computer or send the information securely to a physician. Remember that your healthcare information is confidential, so carefully consider who you will allow to register on the [employer] Patient Portal for access to your information. You can also access the [facility] [employer] [facility] Patient Portal on the [employer]. Simply click on Health Records under Health Data and then click on the [employer] logo. HOW TO SAFELY DISPOSE OF PRESCRIPTION MEDICATIONS Please use one of the following methods to safely dispose of your unused medications. 1.Use a drug disposal kit: the drug disposal pouch allows you to safely discard your old and unused drugs. Ask your nurse to give you one when you are discharged.2.Visit a local take-back location: Many local pharmacies and police departments have programs that collect old and unwanted prescription drugs. Call your local pharmacy or go to http://[email or web address].TeamLease Services/2K4Yp5z to find one close to you.3.Make use of household items: Use cat litter or old coffee grounds to dispose medications if other options are not available. Mix your drugs with these household products, seal them in an airtight container and throw it into the garbage. Call [facility]: [phone] to be sure your drugs can be disposed of in this way. Some medicines may require a different approach.4.Never flush your medications down the toilet. IF YOU HAVE BEEN PRESCRIBED AN OPIOIDS FOR PAIN If you have been prescribed an opioid (such as hydrocodone, oxycodone or morphine), it is critical to understand the possible side effects and risks of opioid pain medications. Even when taken as directed, opioids can have several side effects including: Tolerance, meaning you might need to take more of a medication for the same pain relief. Nausea, vomiting and/or constipation. Sleepiness, dizziness, dry mouth, confusion, depression or itching. Physical dependence, meaning you have withdrawal symptoms when a medication is stopped ? this can develop within a few days. KNOW YOUR RESPONSIBILITIES It is important to know exactly how much and how often to take the opioid pain medications you are prescribed. Never take opioids in higher amounts or more often than prescribed. Do not combine opioids with alcohol or other drugs that cause drowsiness, such as benzodiazepines, also known as benzos, including diazepam and alprazolam, muscle relaxants or sleep aids. Never sell or share prescription opioids. This is illegal. Store opioids in a secure place and out of reach of others (including children, family, friends and visitors). The last page(s) of this document has been signed and retained as a CHART COPY Signatures Patient Education Materials Puncture Wound (General) Tendonitis Medication Leaflets cephalexin My discharge plan and instructions have been reviewed and explained to me and I,JOSEFA ELIZABETH understand my current condition and have read and understand these discharge instructions. I have received a written copy of the plan/instructions. If I have questions, I am aware that I should contact my doctor. Patient/Taco Maker Signature: _ Date/Time: Relationship to Patient: Witness Name/Signature: Date/Time: [facility] Clinical Note 08-19-2022 Note Date & Type Note Facility 08-19-2022 Note ORIGINAL EXAMINATION: THREE XRAY VIEWS OF THE RIGHT KNEE 08/19/2022 12:36 pm COMPARISON: None. HISTORY: ORDERING SYSTEM PROVIDED HISTORY: Reason for Exam: Pain anteriorly. FINDINGS: There is no acute fracture or dislocation. Osseous mineralization is within normal limits. Joint spaces are maintained. No significant knee joint effusion is seen. No aggressive osseous lesions are noted. IMPRESSION: 1. No acute fracture or dislocation. Interpreted by: Yazan Roberts DO Preliminary Report By: Yazan Roberts DO Electronically signed By Yazan Roberts DO Dictated Date: 08/19/2022 12:42:34 PM Prelim Date: 08/19/2022 12:43:14 PM Sign Date: 08/19/2022 12:43:14 PM Ordering Provider: MARTHA OLIVARES [facility] Clinical Note 08-19-2022 Note Date & Type Note Facility 08-19-2022 Note ORIGINAL EXAMINATION: THREE XRAY VIEWS OF THE RIGHT KNEE 08/19/2022 12:36 pm COMPARISON: None. HISTORY: ORDERING SYSTEM PROVIDED HISTORY: Reason for Exam: Pain anteriorly. FINDINGS: There is no acute fracture or dislocation. Osseous mineralization is within normal limits. Joint spaces are maintained. No significant knee joint effusion is seen. No aggressive osseous lesions are noted. IMPRESSION: 1. No acute fracture or dislocation. Interpreted by: Yazan Roberts DO Preliminary Report By: Yazan Roberts DO Electronically signed By Yazan Roberts DO Dictated Date: 08/19/2022 12:42:34 PM Prelim Date: 08/19/2022 12:43:14 PM Sign Date: 08/19/2022 12:43:14 PM Ordering Provider: MARTHA OLIVARES [facility] Discharge instructions 12-17-2021 Note Date & Type Note Facility 12-17-2021 Hospital Discharg e instructions Patient Education 12/17/2021 04:46:23 BILIARY COLIC w/Gallstone (presumd) Possible Gallstone With Biliary Colic [Presumed] Your doctor suspects that your abdominal pain is due to spasm of the gallbladder with gallstones. The gallbladder is a small sack under the liver which stores and releases bile. Bile is a fluid that aids in the digestion of fat. A gallstone may form in this sack and block the flow of bile fluid. This can cause mild to severe cramping pain in the mid or right upper abdomen with nausea and vomiting. To be more certain of the diagnosis, you may need to have an ultrasound, CT-scan or other special test. Home Care: Rest in bed and follow a clear liquid diet until feeling better. If pain or nausea medicine was given to help with your symptoms, take these as directed. Fat in your diet makes the gallbladder contract and may cause increased pain. Therefore, avoid fat in your diet over the next two days and follow a low-fat diet after that. If you are overweight, a low fat diet will help you lose weight. Follow Up if a test was already scheduled for you, keep this appointment. Be sure you know how to prepare yourself for the test. Usually, you will be asked not to eat or drink anything for at least 8 hours before the test. Schedule an appointment with your own doctor after your test is complete to discuss the findings. Get Prompt Medical Attention if any of the following occur: Pain gets worse or moves to the right lower abdomen Repeated vomiting Swelling of the abdomen Pain lasts over 6 hours Fever of 100.4 F (38 C) or higher, or as directed by your healthcare provider Weakness, dizziness or fainting Dark urine or light colored stools Yellow color of the skin or eyes Chest, arm, back, neck or jaw pain [id number] [employer]. [address] [place] [address]. All rights reserved. This information is not intended as a substitute for professional medical care. Always follow your healthcare professional's instructions. Follow Up Care 12/17/2021 03:41:21 With:CHILO CHINO MD, Surgery Address: [address] [facility] [address] [place] [address]- [phone] When: only if needed With:Call Physician Referral Address: When:[address] [facility] Clinical Note 12-17-2021 Note Date & Type Note Facility 12-17-2021 Note Discharge Instructions Thank you for allowing [facility] to assist you with your healthcare needs. The following is important discharge information regarding your hospital visit. Diagnosis from Today's Visit Cholelithiasis What to Do Next Instructions from Your Care Team No qualifying data available. Post Acute Orders No qualifying data available. You Need to Schedule the Following Appointments Follow Up with CHILO CHINO MD, Surgery When Only if needed Where: [address] [facility] [address] [place], [place] [id number]- [phone] Follow Up with Call Physician Referral When Within 5 to 7 days Where: Allergies penicillin Medications Please ask your primary doctor or pharmacist before taking any other medication not listed, including over the counter drugs, herbal medications, vitamins and or supplements as they may interact with your home medications. What How Much When Why Instructions Last Dose New acetaminophen-hydrocodone (Morenci 325- 5 mg oral tablet) 1 tab(s) by mouth Four (4) times a day as needed for as needed for pain Cholelithiasis Duration: 3 Days Printed Prescription New ondansetron (Zofran 4 mg oral tablet) 1 tab(s) by mouth Every 8 hours Cholelithiasis Duration: 5 Days Printed Prescription Please take this list to your next doctor s visit. Bring all medications you take, including over the counter medications, herbals and other supplements with you to your doctor s visit. Patients and families are reminded to discard old lists and to update any records with all medication providers or retail pharmacies. Education Materials Possible Gallstone With Biliary Colic [Presumed] Your doctor suspects that your abdominal pain is due to spasm of the gallbladder with gallstones. The gallbladder is a small sack under the liver which stores and releases bile. Bile is a fluid that aids in the digestion of fat. A gallstone may form in this sack and block the flow of bile fluid. This can cause mild to severe cramping pain in the mid or right upper abdomen with nausea and vomiting. To be more certain of the diagnosis, you may need to have an ultrasound, CT-scan or other special test. Home Care: Rest in bed and follow a clear liquid diet until feeling better. If pain or nausea medicine was given to help with your symptoms, take these as directed. Fat in your diet makes the gallbladder contract and may cause increased pain. Therefore, avoid fat in your diet over the next two days and follow a low-fat diet after that. If you are overweight, a low fat diet will help you lose weight. Follow Up if a test was already scheduled for you, keep this appointment. Be sure you know how to prepare yourself for the test. Usually, you will be asked not to eat or drink anything for at least 8 hours before the test. Schedule an appointment with your own doctor after your test is complete to discuss the findings. Get Prompt Medical Attention if any of the following occur: Pain gets worse or moves to the right lower abdomen Repeated vomiting Swelling of the abdomen Pain lasts over 6 hours Fever of 100.4 F (38 C) or higher, or as directed by your healthcare provider Weakness, dizziness or fainting Dark urine or light colored stools Yellow color of the skin or eyes Chest, arm, back, neck or jaw pain [id number] [employer]. [address] [place] [address], [place] [address]. All rights reserved. This information is not intended as a substitute for professional medical care. Always follow your healthcare professional's instructions. Additional Information VACCINATE! IT SAVES LIVES! Members of the community who have not yet received the COVID-19 vaccine and would like to receive it can visit one of [facility] vaccine clinics. There are many vaccine clinic locations within the [facility]. For locations and available times, please visit [email or web address]. It is important to note that some COVID mobile vaccine clinics are held outdoors and may be canceled in rainy or stormy conditions. To learn more about pediatric vaccinations (ages 5-11), we invite you to visit the [facility] webpage. https://[email or web address].org/pages/[email or web address] 637-Ewwex-Ljvjaxinozf-Frequently-Asked -Questions.html To learn more about the COVID-19 vaccine, we invite you to visit the [facility] website for a list of frequently asked questions. https://[email or web address]/assets/Patients-an d-Visitors/gbose-Xbpmudw-Patehpacal_Ho ked-Questions.pdf [facility] Patient Portal Access Instructions: Stay connected with your healthcare team and access your personal medical information anytime with the [facility] Patient Portal. If you would like a full copy of your medical records please contact the [facility] Medical Records Department Saturday through Saturday between 8a.m. and 4:30p.m. Please follow the directions below to access the portal: 1.Access the email account you provided upon registration to the [facility].2.Look for an invitation email from [facility].3.Open the email and access the invitation link: Accept Invitation to [facility]4.Fill in the required da silva to create your account. Sign into [email or web address] with your username and password that you created in the above steps to stay up to date. You can then view a summary of results, a summary of your visits, and the ability to download your summaries to your computer or send the information securely to a physician. Remember that your healthcare information is confidential, so carefully consider who you will allow to register on the [facility] Patient Portal for access to your information. You can also access the [facility] Patient Portal on the [employer]. Simply click on Health Records under Health Data and then click on the [employer] logo. HOW TO SAFELY DISPOSE OF PRESCRIPTION MEDICATIONS Please use one of the following methods to safely dispose of your unused medications. 1.Use a drug disposal kit: the drug disposal pouch allows you to safely discard your old and unused drugs. Ask your nurse to give you one when you are discharged.2.Visit a local take-back location: Many local pharmacies and police departments have programs that collect old and unwanted prescription drugs. Call your local pharmacy or go to http://TweetMySong.com.TeamLease Services/5K2Gx0u to find one close to you.3.Make use of household items: Use cat litter or old coffee grounds to dispose medications if other options are not available. Mix your drugs with these household products, seal them in an airtight container and throw it into the garbage. Call [facility]: [phone] to be sure your drugs can be disposed of in this way. Some medicines may require a different approach.4.Never flush your medications down the toilet. IF YOU HAVE BEEN PRESCRIBED AN OPIOIDS FOR PAIN If you have been prescribed an opioid (such as hydrocodone, oxycodone or morphine), it is critical to understand the possible side effects and risks of opioid pain medications. Even when taken as directed, opioids can have several side effects including: Tolerance, meaning you might need to take more of a medication for the same pain relief. Nausea, vomiting and/or constipation. Sleepiness, dizziness, dry mouth, confusion, depression or itching. Physical dependence, meaning you have withdrawal symptoms when a medication is stopped ? this can develop within a few days. KNOW YOUR RESPONSIBILITIES It is important to know exactly how much and how often to take the opioid pain medications you are prescribed. Never take opioids in higher amounts or more often than prescribed. Do not combine opioids with alcohol or other drugs that cause drowsiness, such as benzodiazepines, also known as benzos, including diazepam and alprazolam, muscle relaxants or sleep aids. Never sell or share prescription opioids. This is illegal. Store opioids in a secure place and out of reach of others (including children, family, friends and visitors). The last page(s) of this document has been signed and retained as a CHART COPY Signatures Patient Education Materials BILIARY COLIC w/Gallstone (presumd) Medication Leaflets My discharge plan and instructions have been reviewed and explained to me and I,JOSEFA ELIZABETH understand my current condition and have read and understand these discharge instructions. I have received a written copy of the plan/instructions. If I have questions, I am aware that I should contact my doctor. Patient/Taco Maker Signature: _ Date/Time: Relationship to Patient: Witness Name/Signature: Date/Time: [facility] Evaluation + Plan note Note Date & Type Note Facility Evaluation + Plan note No data available for this section [facility] Summary Purpose Family History No Family History Records FoundNo Family History Records FoundNo Family History Records Found Advance Directives No Advanced Directives Records FoundNo Advanced Directives Records FoundNo Advanced Directives Records Found Additional Source Comments INFORMATION SOURCE (unrecogn ized section and content) DATE CREATED AUTHOR AUTHOR'S ORGANIZ ATION 08/31/2022 [facility] ([place]) DATE CREATED AUTHOR AUTHOR'S ORGANIZ ATION 04/07/2023 [facility] Care Team (unrecognized sect ion and content) Care Team Personnel Name: PHYSICIAN, NOT RECORDED Member Role: Primary Care Physician Patient Care team informatio n (unrecognized section and content) Care Team Personnel Name: PHYSICIAN, NOT RECORDED Member Role: Primary Care Physician Name: MARTHA OLIVARES MD Position: ED Physician Member Role: Attending Physician Address: Address: [address] [place] [id number]- Care Team Related Persons Name: JUSTINE ELIZABETH Address: Home [address] [place] [address] Reason for Visit (unrecogniz ed section and content) FOR RECORDS PERTAINING TO PATIENTS WHO ARE OR HAVE BEEN ENROLLED IN A CHEMICAL DEPENDENCY/SUBSTANCEABUSE PROGRAM, SOME INFORMATION MAY BE OMITTED. This clinical summary was aggregated from multiple sources. Caution should be exercised in using it in the provision of clinical care. This summary normalizes information from multiple sources, and as a consequence, information in this document may materially change the coding, format and clinical context of patient data. In addition, data may be omitted in some cases. CLINICAL DECISIONS SHOULD BE BASED ON THE PRIMARY CLINICAL RECORDS. [facility]. provides no warranty or guarantee of the accuracy or completeness of information in this document.
[2023-04-17 13:32] LABS: HIV - WCH Non-Reactive (Nonreactive); Hepatitis C Antibody Non-Reactive (Nonreactive); Syphilis Antibodies Non-reactive
[2023-04-18 08:12] LABS: HSV 1 IgG < 0.91 index (0.00-0.90); HSV 2 IgG < 0.91 index (0.00-0.90)
[2023-04-20 05:09] LABS: Chlamydia By Nucleic Acid AMP Positive (Negative); Gonococcus By Nucleic Acid AMP Negative (Negative)
[2023-04-22 18:53] LABS: HPV Reflexed? NOT INDICATED
== END | disposition home or self-care (01) ==
PROVIDERS: PCP Family Medicine; Referring Provider Nurse Practitioner Women's Health; Visit Provider Nurse Practitioner Women's Health
DX: Z20.2 Contact with and (suspected) exposure to infections with a predominantly sexual mode of transmission (principal); Z12.4 Encounter for screening for malignant neoplasm of cervix
CPT/HCPCS: 36415; 86695; 86696; 86703; 86780; 86803; 87491; 87591; 88175; G0145

== ENCOUNTER → 2023-05-20 | Outpatient (CLI) | payer MEDICAID, SELFPAY ==
[2023-05-23 07:08] LABS: Chlamydia By Nucleic Acid AMP Negative (Negative); Gonococcus By Nucleic Acid AMP Negative (Negative)
== END | disposition home or self-care (01) ==
PROVIDERS: PCP Family Medicine; Visit Provider Nurse Practitioner Women's Health
DX: Z11.3 Encounter for screening for infections with a predominantly sexual mode of transmission (principal)
CPT/HCPCS: 87491; 87591

== ENCOUNTER → 2025-02-01 | Outpatient (CLI) | payer SELFPAY ==
[2025-02-01 10:06] LABS: hCG Titer Quant., Serum 13 mIU/mL (<9 non-preg)
== END | disposition home or self-care (01) ==
PROVIDERS: PCP Family Medicine; Visit Provider Obstetrics & Gynecology
DX: O02.1 Missed abortion (principal)
CPT/HCPCS: 36415; 84702

== ENCOUNTER → 2025-02-05 | Outpatient (CLI) | payer MEDICAID, SELFPAY ==
[2025-02-05 17:19] LABS: hCG Titer Quant., Serum 4 mIU/mL (<9 non-preg)
== END | disposition home or self-care (01) ==
PROVIDERS: PCP Family Medicine; Visit Provider Obstetrics & Gynecology
DX: O02.1 Missed abortion (principal)
CPT/HCPCS: 36415; 84702